=== PATIENT | male | born 1975 | race Two or more races ===

== ENCOUNTER 2024-05-19 07:56 | Outpatient (AMB) | payer MEDICAID, SELFPAY ==
--- NOTE | 2024-05-19 08:04 | A.OFFVIS_ITS ---
Intake Visit Reasons: Polyuria w/left vericocele/Hx stones Intake Note: New Patient presents for initial visit for poluria with left vericocele and history of kidney stones Urology Medications: none Blood Thinner: none Superintendent Renting Managing Required: Yes Superintendent Renting Managing Services: Superintendent Renting Managing Present Superintendent Renting Managing Name: MELISSA [id number] Accompanied by: Self / Same As Patient Allergies No Known Allergies Allergy (Verified 05/19/24 08:35) Medication List - Last Reconciled 05/19/24 by DAYAN Pena atorvastatin 20 mg PO BEDTIME fluticasone propionate 50 mcg/actuation 1 spray intranasal DAILY glimepiride 2 mg PO QAM loratadine 10 mg PO DAILY PRN HPI Comments Details: Juan is a 49-year-old Albanian speaking male patient of . He has a past medical history of allergies, hyperlipidemia, and diabetes. He presents to the office today as a new patient for ongoing lower urinary tract symptoms as well as nephrolithiasis. In discussion with the patient today he reports when living in [place] he had experienced an episode of nephrolithiasis approximately 5 years ago that required surgical intervention with what sounds like ESWL. He reports noting ongoing issues with urinary urgency and frequency. He otherwise denies incontinence, nocturia, hematuria, dysuria, foul smelling urine, changes to urinary stream, flank pain, fever, and or chills. In office urinalysis res ults reviewed with the patient today. We discussed obtaining retroperitoneal ultrasound for further assessment evaluation. We discussed bladder triggers/irritants. We discussed at length potential causes of nephrolithiasis as well as lower urinary tract symptoms patient is experiencing. We discussed possible near future in office cystoscopy and or urodynamics for further assessment evaluation. TIESHA offered however deferred. He otherwise offers no other issues or concerns at this time. [facility] Medical History Type 2 diabetes mellitus without complications Dysthymic disorder Review of Systems Const All systems reviewed & are unremarkable except as noted in HPI and below Physical Exam Const General: cooperative, healthy appearing, comfortable, no acute distress, well developed, alert and awake Orientation/consciousness: patient oriented x3 Limitations: no limitations HEENT Head: Yes normal to inspection, Yes normocephalic and Yes atraumatic Ears: hearing grossly normal bilaterally Eyes General: appearance normal, both eyes and all related structures Neck Neck: Yes normal visual inspection and Yes trachea midline Chest Chest palpation & inspection: normal inspection of the chest Resp Effort & Inspection: normal respiratory effort and able to speak in complete sentences Cardio Rate: regular rate GI Inspection: Yes normal to inspection General: Yes no CVA tenderness Back/Spine/Pelvis Back: no CVA tenderness Skin General skin exam: no rashes or lesions noted Neuro General: patient oriented x3 Extrem General: Yes normal to inspection Psych Appearance: grossly normal and well kempt Mental Status: mental status grossly normal Speech and movement: Normal speech and movement present and Clear speech present Affect: normal affect Attitude: cooperative Thought process: Normal thought process present Thought content: Normal thought content present Insight: Fair insight present (Psych) Judgement: Fair judgement present (Psych) Results AMB Urinalysis, Automated UA Leukoctes 0 Jordy/uL Last Edit by [employer] on 05/19/24 08:23 UA Nitrite Last Edit by [employer] on 05/19/24 08:23 UA Urobilinogen 0.2 mg/dL Last Edit by [employer] on 05/19/24 08:23 UA Protein 15 mg/dL Last Edit by [employer] on 05/19/24 08:23 UA pH 6.0 Last Edit by [employer] on 05/19/24 08:23 UA Blood 0 Kee/uL Last Edit by [employer] on 05/19/24 08:23 UA Specific [place] 1.020 Last Edit by [employer] on 05/19/24 08:23 UA Ketone Last Edit by [employer] on 05/19/24 08:23 UA Bilirubin 0 mg/dL Last Edit by [employer] on 05/19/24 08:23 UA Glucose 0 mg/dL Last Edit by [employer] on 05/19/24 08:23 Results Reviewed Results Reviewed: Laboratory Last Values Urine pH (Auto) 6.0 05/19/24 08:22 Specific [place] (Auto) 1.020 05/19/24 08:22 Urine Protein (Auto) 15 mg/dL 05/19/24 08:22 Glucose (UA)(Auto) 0 mg/dL 05/19/24 08:22 Urine Blood (Auto) 0 Kee/uL 05/19/24 08:22 Urine Bilirubin (Auto) 0 mg/dL 05/19/24 08:22 Urine Urobilinogen (Auto) 0.2 mg/dL 05/19/24 08:22 Leukocyte Esterase (Auto) 0 Jordy/uL 05/19/24 08:22 Assessment & Plan Assessment & Plan (1) Nephrolithiasis: Code(s): N20.0 - Calculus of kidney Category: Medical (2) Urinary urgency: Code(s): R39.15 - Urgency of urination Category: Medical (3) Urinary frequency: Code(s): R35.0 - Frequency of micturition Category: Medical Plan In office urinalysis results reviewed the patient today; as noted above. Discussed bladder triggers/irritants. Discussed potential causes of lower urinary tract symptoms as well as nephrolithiasis. Will obtain retroperitoneal ultrasound for further assessment evaluation. Will obtain PSA for further assessment evaluation. Discussed importance of limiting fluids 2-3 hours prior to bed to decrease episodes of nocturia. Start Flomax as discussed and prescribed. Follow-up in 1-3 months with imaging and labs to be completed prior; or sooner with any issues, concerns, and or questions. Orders: Orders AMB Urinalysis Automated Today Z13.9 - Encounter for screening, unspecified US retroperitoneal comp Today N20.0 - Calculus of kidney, R35.0 - Frequency of micturition, R39.15 - Urgency of urination Prostate Specific Antigen Today N40.0 - Benign prostatic hyperplasia without lower urinary tract symptoms Medications: New tamsulosin 0.4 mg PO BEDTIME 30 caps 3RF 30 days N40.1 - Benign prostatic hyperplasia with lower urinary tract symptoms, R35.1 - Nocturia Patient Instructions: The patient had an opportunity to ask questions regarding the treatment plan. All questions were answered. Physical exam, labs, and imaging were discussed and reviewed in detail. As well as risks, benefits, and discussion of treatment choices. No major barriers to understanding were identified. The patient expressed understanding and agreement with the above treatment plan. The patient was made aware they should contact our office by phone for worsening of their current condition, the appearance of new symptoms, or with any questions or concerns. Compliance is encouraged with any medications and follow up testing that is ordered. It is a privilege to be allowed the opportunity to participate in? your urological care.? Again, if you have any questions or concerns If you have any questions or concerns please do not hesitate to contact me. The office is [phone]. This note is constructed using voice recognition software. While every effort has been made to ensure accuracy job coaching errors may have been included. Yours sincerely, DAYAN Pena Coding Level of Care Code New Pt Level 4 (82889) Diagnoses Nephrolithiasis N20.0 Urinary urgency R39.15 Urinary frequency R35.0
== END 2024-05-19 08:37 | disposition home or self-care (01) ==
PROVIDERS: PCP Nurse Practitioner Family; Visit Provider Nurse Practitioner Family
DX: N20.0 Calculus of kidney (principal); R39.15 Urgency of urination; R35.0 Frequency of micturition; Z13.9 Encounter for screening, unspecified
CPT/HCPCS: 99204

== ENCOUNTER → 2024-05-19 07:56 | Outpatient (BNVA) | payer MEDICAID, SELFPAY | PROVIDERS: PCP Nurse Practitioner Family; Visit Provider Nurse Practitioner Family | DX: N40.1 Benign prostatic hyperplasia with lower urinary tract symptoms (principal); R39.15 Urgency of urination; R35.0 Frequency of micturition; N20.0 Calculus of kidney | CPT/HCPCS: 81003; 99212 ==

== ENCOUNTER 2024-08-11 10:43 | Outpatient (REF) | payer MEDICAID, SELFPAY ==
--- OUTSIDE RECORDS SUMMARY | 2024-08-11 11:35 | XMS_ITS | Encounter Summary ---
Author Organization [facility] Address [address] [place] [address] Care Team Providers Care Pricing Analyst Name Role Phone Billy Martini NP Primary Care Provider [phone] Reason for Visit * Reason Comments Diabetes Mellitus Encounter Details Date Type Department Care Team (Late st Contact Info) Description 07/15/2024 11:20 AM EST Office Visit [facility] [address] [place] [phone] Tl Braswell PharmD [address] [place] [address] Morteza Kamara [address] [place] [address] Type 2 diabetes mellitus with diabetic microalbuminuria, without long-term current use of insulin ([facility]) (Primary Dx); Hyperlipidemia LDL goal <70 Social History Tobacco Use Types Packs/Day Years Used Date Smoking Tobacco: Never Passive Smoke Exposure: Never Smokeless Tobacco: Never Tobacco Cessation:Counseling Given: Not Answered Alcohol Use Standard Drinks/Week Comments Never 0 (1 standard drink = 0.6 oz pur e alcohol) Social Connections Answer Date Recorded Connectedness 0 03/23/2024 Financial Resource Strain Answer Date R ecorded Financial Resource Strain 0 2023 Stress Answer Date Recorded Stress 0 12/13/2023 Physical Activity Answer Date Recorded Physical Activity 0 12/13/2023 Food Insecurity Answer Date Recorded Food 0 04/02/2024 Transportation Needs Answer Date Record ed Transportation 0 12/13/2023 Housing Stability Answer Date Recorded Housing 0 12/13/2023 Safety and Environment Answer Date Kong rded Safety 0 12/13/2023 Utilities Answer Date Recorded Utilities 0 12/13/2023 Employment Answer Date Recorded Stress 0 03/23/2024 Sex and Gender Information Value Date Recorded Sex Assigned at Male 01/01/2024 10:12 AM PDT Legal Sex Male 5:43 AM PDT Gender Identity Male 01/01/2024 10:12 AM PDT Sexual Orientation Straight 01/01/2024 10 :12 AM PDT COVID-19 Exposure Response Date Recorded In the last 10 days, have yo u been in contact with someone who was confirmed or suspected to have Coronavirus/COVID-19? No / Unsure 07/15/2024 9:56 AM EST documented as of this encounter Last Filed Vital Signs Vital Sign Reading Time Taken Comments Blood Pressure 112/70 07/15/2024 10:41 AM EST Pulse 79 07/15/2024 10:41 AM EST Temperature - - Respiratory Rate 16 07/15/2024 10:41 AM EST Oxygen Saturation 98% 07/15/2024 10:41 AM EST Inhaled Oxygen Concentration - - Weight 60.3 kg (133 lb) 07/15/2024 10:41 AM EST Height 152.4 cm (5') 07/15/2024 10:41 AM EST Body Mass Index 25.97 07/15/2024 10:41 AM EST documented in this encounter Progress Notes * Lizeth XieD - 07/15/2024 10:46 AM EST Juan Baker is a 49 year old, English-speaking male who presents today for a follow-up visit in [facility] with Tl Braswell PharmD. Referred by DONNA Ryan. Morteza Streeter (English) interpreted for today's visit. is present and assisting with interpretation during this in-person visit. Accompanied by: None Subjective: Patient reports: Continues to use Freestyle Lite, although did not bring in to today's visit due to forgetting at home. Reports the following BG values: see below. Endorses use of glimepiride 2 mg daily at 3 PM due to misunderstanding. Denies experiencing bilateral peripheral extremity numbness or tingling. Polydipsia/polyphagia/polyuria? no Changes in diet: Eats rice twice weekly Eats bread daily on the side with 3 meals Drinking 1 can of soda per week with zero sugar Reports drinking 2-3 bottles of water daily. Changes in physical activity: None, continues to walk New concerns: None Tobacco Use: Never Smoker Tobacco Intervention:provided tobacco cessation counseling Alcohol Use: No alcohol use Additional OTC medications or supplements: None Specialists managing DM/HTN: None Diabetes Current Diabetes RX: Glimepiride 2 mg daily with breakfast Objective: BGM Metrics: Not available, patient forgot glucometer/reader at home SMBG (BGM: Freestyle Lite) 07/15/24 FB mg/dL 110 mg/dL 117 mg/dL Lowest: 110 mg/dL Denies experiencing hypoglycemia readings (<70 mg/dL) or symptoms. Allergies reviewed: No Known Allergies BP 112/70 (Left Arm, Sitting, Regular Adult) Pulse 79 Resp 16 Ht 5' (1.524 m) Wt 133 lb (60.3 kg) SpO2 98% BMI 25.97 kg/m?? Smoking Status Never BSA 1.6 m?? Estimated Creatinine Clearance: 84.4 mL/min (by C-G formula based on SCr of 0.81 mg/dL). Last 3 BP Readings: Date: BP: 07/15/2024 112/70 06/15/2024 110/70 06/01/2024 110/83 Wt Readings from Last 3 Encounters: 07/15/24 133 lb (60.3 kg) 06/15/24 130 lb (59 kg) 05/07/24 130 lb (59 kg) Lab Results Component Value Date HGBA1C 6.9 (H) 06/15/2024 HGBA1C 6.3 (H) 01/01/2024 Lab Results Component Value Date GLUCOSE 122 (A) 07/15/2024 Lab Results Component Value Date URALBCREAT 257 (H) 06/15/2024 Lab Results Component Value Date VITB12 521 06/15/2024 FOLATE 17.6 06/15/2024 Lab Results Component Value Date NA 137 06/15/2024 K 4.9 06/15/2024 BUN 14 06/15/2024 BUNCREAT SEE NOTE: 06/15/2024 CREATININE 0.81 06/15/2024 EGFR 109 06/15/2024 Lab Results Component Value Date TSH 3.85 01/01/2024 Lab Results Component Value Date TRIGLYC 122 06/15/2024 CHOL 146 06/15/2024 HDL 39 (L) 06/15/2024 LDL 85 06/15/2024 CHOLHDL 3.7 06/15/2024 NONHDL 107 06/15/2024 The 10-year ASCVD risk score (Ángel COSBY, et al., 2019) is: 3.5% Assessment: Diabetes: Well-controlled A1c, Well-controlled SMBG HTN: well-controlled ASCVD: Age 40-75 yo, DM, no ASCVD = moderate intensity statin recommended in addition to lifestyle therapy Plan: E11.29,R80.9 Type 2 diabetes mellitus with diabetic microalbuminuria, without long-term current useof insulin ([facility]) (primary encounter diagnosis) Plan : EMPAGLIFLOZIN 10 MG TABLET - Take 1 Tablet by mouth every morning stop glimepiride 2 mg PHARMACOTHERAPY for diabetes Counseled patient on proper use of diabetes testing and testing once daily (alternate between FBG and 1-2 hours post biggest meal). Counseled patient on the following diet and lifestyle modifications (weight loss, low-sodium (SHEPPARD)diet, decrease carbohydrates such as rice, bread, pasta and corn meal, increase non-starchy vegetables, no potatoes or corn, increase protein, and increase physical activity with at least 150 minutesof moderate physical activity per week) New Jardiance 10 mg daily every morning (take with plenty of water during the day) - due to elevated microalbuminuria Stop glimepiride 2 mg daily PHARMACOTHERAPY for HTN Patient has elevated urine microalbumin/SCr ratio, will start on Jardiance. Will not E78.5 Hyperlipidemia LDL goal <70 ASCVD: Per 2023 ADA guidelines for lipid management, continue moderate-intensity statin: atorvastatin 20 mg daily at bedtime Referral: None, will contact SARAI Mcconnell to schedule foot care appt. Follow-Up: 09/17/24 @10:40 AM Patient agrees with plan of care and verbalizes understanding. Questions were answered. Education: Medication Regimen: (indication, dosage, administration, storage, ADR, missing dose) BG testing and target/Alternate Site Testing Focus on consuming carbohydrates from high-fiber sources like whole grains, legumes, and fruits in controlled portions to help manage blood sugar levels, and aim to fill half your plate with non-starchy vegetables like leafy greens, broccoli, or peppers for added nutrients and fiber. Avoid sugary beverages like soda and limit sweets to special occasions, choosing healthier alternatives such as water, unsweetened tea, or low-calorie drinks to minimize blood sugar spikes Incorporate at least 150 minutes of moderate physical activity per week, such as brisk walking or cycling, to improve insulin sensitivity, enhance glucose control, and support overall cardiovascular health. Sign / Symptoms of Hyperglycemia / Hypoglycemia Hypoglycemia Treatment (Rule 15) Penitentiary Complications Uncontrolled Diabetes Tl Braswell PharmD documented in this encounter Plan of Treatment Upcoming Encounters Date Type Department Care Team (Late st Contact Info) Description 09/17/2024 9:40 AM EDT Office Visit [facility] [address] [place] [phone] [address] [place] [address] 09/17/2024 10:40 AM EDT Office Visit [facility] [address] [place] [address] Tl Braswell PharmD [address] [place] [address] Morteza Kamara [address] [place] [address] documented as of this encounter Procedures Procedure Name Priority Date/Time Associated Diagnosis Comments GLUCOSE, BLOOD BY GLUCOSE MONITORING DEVICE (CLIA WAIVED)POCT Routine 07/15/2024 10:43 AM EST Type 2 diabetes mellitus with diabetic microalbuminuria, without long-term current use of insulin ([facility]) documented in this encounter Results * (ABNORMAL) GLUCOSE, BLOOD BY GLUCOSE MONITORING DEVICE (CLIA WAIVED)POCT (07/15/2024 10:43 AM EST) GLUCOSE 122(A) 70 - 100 mg/dL [facility] POCT Capillary Blood Blood / Unknown 5 10:43 AM EST us Tl Michaelle PharmD LAB - BLOOD DRAW Final Re sult [facility] POCT documented in this encounter Visit Diagnoses Diagnosis Type 2 diabetes mellitus with diabetic microalbuminuria, without long-term current use of insulin ([facility])- Primary Hyperlipidemia LDL goal <70 Other and unspecified hyperlipidemia documented in this encounter Additional Health Concerns Assessment Noted Time PHQ-9 Depression Total Score: 0 05/07/20 24 2:03 PM PDT documented as of this encounter Care Teams Pricing Analyst Relationship Specialty Start Date End Date Billy Martini NP [address] [place] [address] PCP - General Family Medicine, CHRISTIAN EDUCATION DIRECTOR 06/17/24 documented as of this encounter
--- OUTSIDE RECORDS SUMMARY | 2024-08-11 11:35 | XMS_ITS | Clinical Summary ---
Author Organization [facility] Address [address] [place] [address] Care Team Providers Care Ux Manager Name Role Phone Vini Billy RIVERS Primary Care Provider [phone] Source Comments PLEASE NOTE, if this patient is a minor, it may be UNLAWFUL to discuss sensitive information that is contained in these records (such as FAMILY PLANNING, MENTAL HEALTH or SUBSTANCE ABUSE) with the minor patient's parent or other person without the patient's specific authorization.[facility] Allergies No known active allergies Medications ibuprofen 600 mg tabletIndicatio ns:Intermittent headache Take 1 Tablet by mouth 4 (four) times daily as needed for pain, fever or headaches 120 Tablet 4 Active atorvastatin (LIPITOR) 20 mg tabletIndicatio ns:Hyperlipidem ia LDL goal <70 Take 1 Tablet by mouth nightly at bedtime For cholesterol 90 Tablet 1 4 Active loratadine (CLARITIN) 10 mg tabletIndicatio ns:Rash and nonspecific skin eruption,Post-n marilin drip Take 1 Tablet by mouth once daily as needed for allergies or other reason (itching) 90 Tablet 4 Active fluticasone (FLONASE) 50 mcg/actuation nasal sprayIndication s:Post-nasal drip Place 1 [place] in both nostrils once daily for 30 days 16 g 4 Active blood-glucose meter monitoring kitIndications: Type 2 diabetes mellitus with hyperglycemia, without long-term current use of insulin (HCC-CMS) Use to test blood glucose once daily. (Freestyle Lite). 1 Each 4 Active blood sugar diagnostic stripsIndicatio ns:Type 2 diabetes mellitus with hyperglycemia, without long-term current use of insulin (HCC-CMS) Use to test blood glucose once daily. (Freestyle Lite) 100 Each 3 4 Active lancets (FREESTYLE LANCETS) 28 gaugeIndication s:Type 2 diabetes mellitus with hyperglycemia, without long-term current use of insulin ([facility]) Use to test blood glucose once daily. (Freestyle Lancets) 100 Each 3 4 Active alcohol swabsIndication s:Type 2 diabetes mellitus with hyperglycemia, without long-term current use of insulin ([facility]) Use to test blood glucose once daily. 100 Each 3 4 Active tamsulosin (FLOMAX) 0.4 mg 24 hr capsule Take 0.4 mg by mouth nightly at bedtime 4 Active empagliflozin (JARDIANCE) 10 mg tabIndications: Type 2 diabetes mellitus with diabetic microalbuminuri a, without long-term current use of insulin ([facility]) Take 1 Tablet by mouth every morning stop glimepiride 2 mg 30 Tablet 5 5 Active glimepiride (AMARYL) 2 mg tabletIndicatio ns:Type 2 diabetes mellitus with hyperglycemia, without long-term current use of insulin ([facility]) Take 1 Tablet by mouth once daily with breakfast For diabetes 90 Tablet 4 025 Discontin ued(Excha nge, Therapeut ic) Active Problems Problem Noted Date Diagnosed Date Type 2 diabetes mellitus wit h diabetic microalbuminuria, without long-term current use of insulin ([facility]) 06/15/2024 Overview (06/16/2024): DM dx: ~ in [place] per patient reports Glucometer: Freestyle Lite Current Diabetes RX: Glimepiride 2 mg daily with breakfast STEPHANIE-I/ARB: BP is well-controlled, urine microalbumin/Scr ratio will completed today, eGFR >60 mL/min/1.73m2 as of 01/01/24. Per KDIGO guidelines, patient is low-risk for microalbuminuria, will hold off on STEPHANIE-I/ARB for now. Statin: Atorvastatin 20 mg daily at bedtime Pneumococcal vaccine: PCV20 (02/05/24) Diabetes foot exam: Referral pending as of 06/15/24 Diabetes retinal exam: 05/21/24 at [facility] No evidence of diabetic retinopathy or macular edema Epiretinal membrane OD - mild ERM - monitor Nuclear sclerosis OU - the patint is diagnosed [facility] cataract - monitor Presbyopia OU - mentions blurred vision at near - no prior use of glasses for near - recommend OTC +1.50 reading glasses - advised well. Nephrolithiasis 06/08/2024 Overview (06/08/2024): Saw [facility] urologist on 05/2024: placed on Tamsulosin. Hyperlipidemia LDL goal <70 01/09/2024 Immune to varicella 01/09/2024 Overview (01/09/2024): Per serology Pain, dental 01/01/2024 Personal history of kidney stones 01/01/2024 Polyuria 01/01/2024 Dysthymia 01/01/2024 Left varicocele 01/01/2024 Resolved Problems Problem Noted Date Diagnosed Date Resolved Date Diabetes mellitus type 2 01/01/202403/2024 Encounters Date Type Department Care Team Description 07/30/2024 11:00 AM EST Office Visit [address] [phone] David-Fisher, Chema, DDS Retained tooth root (Primary Dx) 07/15/2024 11:20 AM EST Office Visit [address] [phone] Tl Braswell, PharmD Morteza Kamara Type 2 diabetes mellitus with diabetic microalbuminuria, without long-term current use of insulin ([facility]) (Primary Dx); Hyperlipidemia LDL goal <70 07/15/2024 Travel 06/15/2024 10:20 AM EST Office Visit [address] [phone] Tl Braswell, PharmD Marium Krishnamurthy Type 2 diabetes mellitus with hyperglycemia, without long-term current use of insulin ([facility]) (Primary Dx); Hyperlipidemia LDL goal <70 06/15/2024 Travel 06/01/2024 9:00 AM EST Office Visit [address] [phone] Zachery Vyas, DDS Caries (Primary Dx) 06/01/2024 Travel 05/27/2024 9:00 AM EST Office Visit [facility] [address] [place] [phone] Chema Meneses, DDS Caries (Primary Dx) 05/27/2024 Travel from Last 3 Months Immunizations Name Administration Dates Next Due COVID-19,SARS-COV-2 VACCINE, UNSPECIFIED (US Adm in) 02/25/2021,02/02/2021 HEP B, PED/ADOL 07/14/2023 Hep B,adult,adjuvanted (HEPLISAV) 02/05/2024 Influenza (FLUBLOK),recombinant,injectable,preservative Free 05/07/2024 MMR (MMR II/Priorix) 07/14/2023,01/30/2023 PNEUMOCOCCAL CONJUGATE PCV 20 (Prevnar) 02/05/20 24 TDAP 02/05/2024,01/01/2024 Family History Medical History Relation Name Comments Other (See Comments) Father don ot know Heart Disease Mother Relation Name Status Comments Father Mother Social History Tobacco Use Types Packs/Day Years [...] No / Unsure 07/15/2024 9:56 AM EST Last Filed Vital Signs Vital Sign Reading Time Taken Comments Blood Pressure 112/70 07/15/2024 10:41 AM EST Pulse 79 07/15/2024 10:41 AM EST Temperature 36.7 ??C (98 ??F) 05/07/2024 2:00 PM EDT Respiratory Rate 16 07/15/2024 10:41 AM EST Oxygen Saturation 98% 07/15/2024 10:41 AM EST Inhaled Oxygen Concentration - - Weight 60.3 kg (133 lb) 07/15/2024 10:41 AM EST Height 152.4 cm (5') 07/15/2024 10:41 AM EST Body Mass Index 25.97 07/15/2024 10:41 AM EST Plan of Treatment Upcoming Encounters Date Type Department Care Team (Late st Contact Info) Description 09/17/2024 9:40 AM EDT Office Visit [address] [phone] Jessica Campo [address] [place] [address] 09/17/2024 10:40 AM EDT Office Visit [facility] [address] [place] [phone] Tl Braswell, LizethD [address] [place] [address] Morteza Kamara [address] [place] [address] Health Maintenance Due Date Last Done Comments Diabetes Foot Exam [address] CT Colonography 01/05/2021 Colonoscopy 01/05/2021 Colorectal Cancer Screening 01/05/2021 FIT/gFOBT 01/05/2021 Fecal DNA 01/05/2021 Flexible Sigmoidoscopy 01/05/2021 Imm-Hepatitis B (2 of 2 - Cp G 2-dose series) 03/04/2024 02/05/2024, 07/14/2023 Depression Monitoring 08/07/2024 05/07/2024 , 01/01/2024 Dental Prophy 09/23/2024 03/24/2024 [id number] ( season) 2024 02/25/2021, 02/02/2021 Postponed from 03/08/2024 (Patient postponement) Diabetes HbA1c 12/14/2024 06/15/2024, 01/01/2024 Dental BW 03/12/2025 03/10/2024 Dental Examination 03/12/2025 03/10/2024 Dental Perio Charting 03/26/2025 03/24/2024 Retinopathy Screening 05/21/2025 05/21/2024 Diabetes Microalbumin (w/Creatinine) 06/15/2025 06/15/2024, 06/15/2024 Lipid Screening 06/15/2025 06/15/2024, 01/01/2024 Serum Creatinine 06/15/2025 06/15/2024, 01/01/2024 Tobacco Screening 06/15/2025 06/15/2024 Hypertension Screening (#1) 07/15/2025 Dental FMX/Pano 05/29/2029 05/27/2024, 03/10/2024 Imm-DTaP/Tdap/Td (3 - Td or Tdap) 02/04/2034 02/05/2024, 01/01/2024 HIV Screening Completed 01/01/2024 Hepatitis C Screening Completed 01/01/2024 , 01/01/2024 Imm-Pneumococcal Completed 02/05/2024 Imm-Influenza Completed 05/07/2024 Alcohol and Drug Screen Completed 07/15/19, 01/01/2024 Procedures Procedure Name Priority Date/Time Associated Diagnosis Comments 12 EXTRACTION ERUPTED TOOTH OR EXPOSED ROOT Routine 07/30/2024 11:00 AM EST Retained tooth root 19 EXTRACTION ERUPTED TOOTH OR EXPOSED ROOT Routine 07/30/2024 11:00 AM EST Retained tooth root CASE PRESENTATION SUBS DTL & EXTENSIVE TX PLN Routine 07/30/2024 11:00 AM EST Retained tooth root GLUCOSE, BLOOD BY GLUCOSE MONITORING DEVICE (CLIA WAIVED)POCT Routine 07/15/2024 10:43 AM EST Type 2 diabetes mellitus with diabetic microalbuminuria, without long-term current use of insulin ([facility]) GLUCOSE, BLOOD BY GLUCOSE MONITORING DEVICE (CLIA WAIVED)POCT Routine 06/16/2024 10:43 AM EST Type 2 diabetes mellitus with hyperglycemia, without long-term current use of insulin ([facility]) MICROALBUMIN/CREATININ E RATIO, URINE, RANDOM Routine 06/15/2024 11:59 AM EST Diabetes mellitus type 2 HGBA1C W/MPG Routine 06/15/2024 11:59 AM EST Diabetes mellitus type 2 LIPIDS W RFLX TO DIRECT LDL Routine 06/15/2024 11:59 AM EST Routine general medical examination at a health care facility Hyperlipidemia LDL goal <70 COMPREHENSIVE METABOLIC PANEL Routine 06/15/2024 11:59 AM EST Routine general medical examination at a [facility] care facility Diabetes mellitus type 2 Hyperlipidemia LDL goal <70 VITAMIN B12 & FOLATE Routine 06/15/2024 11:57 AM EST Type 2 diabetes mellitus with hyperglycemia, without long-term current use of insulin ([facility]) 18 MO RESIN-BASED COMPOSITE - TWO SURFACES POSTERIOR Routine 06/01/2024 9:00 AM EST Caries CASE PRESENTATION SUBS DTL & EXTENSIVE TX PLN Routine 05/27/2024 9:00 AM EST Caries PANORAMIC RADIOGRAPHIC IMAGE Routine 05/27/2024 9:00 AM EST Caries 30 EXTRACTION ERU TOOTH RQR REMV BONE &/SECTN TOOTH Routine 05/27/2024 9:00 AM EST Caries REFERRAL TO OPHTHALMOLOGY Routine 05/21/2024 3:00 AM EST Screening for diabetic retinopathy REFERRAL TO UROLOGY Routine 05/19/2024 3 :00 AM EST Personal history of kidney stones Polyuria Left varicocele PROPHYLAXIS - ADULT Routine 03/24/2024 3 :00 PM EDT Dental calculus INTRAORAL - COMP SERIES OF RADIOGRAPHIC IMAGES Routine 03/10/2024 2:20 PM EDT Retained tooth root Caries Complete bony impaction of tooth COMP ORAL EVALUATION - NEW/ESTABLISHED PATIENT Routine 03/10/2024 2:20 PM EDT Complete bony impaction of tooth Caries Retained tooth root HIV 1/2 AG & AB W/RFLX (4TH GEN) Routine 01/01/2024 2:14 PM EDT Encounter for health examination of refugee HEPATITIS C AB W/RFLX HCV RNA, QT, RT PCR Routine 01/01/2024 2:14 PM EDT Encounter for health examination of refugee from Last 3 Months or Most Recently Relevant to Health Maintenance Results * (ABNORMAL) GLUCOSE, BLOOD BY GLUCOSE MONITORING DEVICE (CLIA WAIVED)POCT (07/15/2024 10:43 AM EST) Only the most recent of2 resultswithin the time period is included. GLUCOSE 122(A) 70 - 100 mg/dL [facility] PO[facility] Capillary Blood Blood / Unknown 10:43 AM EST Tl Braswell PharmD LAB - BLOOD DRAW Final Re sult [facility] POCT * (ABNORMAL) HGBA1C W/MPG (06/15/2024 11:59 AM EST) HEMOGLOBIN A1C 6.9(H) <5.7 % of total Hgb Science Comment: For someone without known diabetes, a hemoglobin A1c value of 6.5% or greater indicates that they may have diabetes and this should be confirmed with a follow-up test. For someone with known diabetes, a value <7% indicates that their diabetes is well controlled and a value greater than or equal to 7% indicates suboptimal control. A1c targets should be individualized based on duration of diabetes, age, comorbid conditions, and other considerations. Currently, no consensus exists regarding use of hemoglobin A1c for diagnosis of diabetes for children. ?? MEAN PLASMA GLUCOSE 168 mg/dL (calc) [employer] [facility] Blood Blood / Unknown 06/15/2024 1 1:59 AM EST 06/15/2024 12:00 PM EST Narrative State [facility] - 06/16/2024 6:00 PM EST FASTING:NO Raul Lal PAINTING CONTRACTOR LAB - BLOOD DRAW Edited Resu lt - Final [place] [facility] [address] [address], [place] [facility] [address] [place] [address] * (ABNORMAL) LIPIDS W RFLX TO DIRECT LDL (06/15/2024 11:59 AM EST) CHOLESTEROL, TOTAL 146 <200 mg/dL [place] [facility] HDL CHOLESTEROL 39(L) > OR = 40 mg/dL [place] [facility] TRIGLYCERIDES 122 <150 mg/dL [place] [facility] LDL-CHOLESTEROL 85 99 mg/dL (calc) [employer] [facility] Comment: Reference range: <100 Desirable range <100 mg/dL for primary prevention; ?? <70 mg/dL for patients with CHD or diabetic patients with > or = 2 CHD risk factors. LDL-C is now calculated using the Lucio-Muniz calculation, which is a validated novel method providing better accuracy than the Friedewald equation in the estimation of LDL-C. Lucio GREGORIO et al. REYES. 2013;310(19): 5187-8184 (http://education.LabourNet.MajorWeb, [employer]/faq/OYF796) CHOL/HDLC RATIO 3.7 <5.0 (calc) [employer] [facility] NON-HDL CHOLESTEROL 107 <130 mg/dL (calc) [employer] [facility] Comment: For patients with diabetes plus 1 major ASCVD risk factor, treating to a non-HDL-C goal of <100 mg/dL (LDL-C of <70 mg/dL) is considered a therapeutic option. Blood Blood / Unknown 06/15/2024 1 1:59 AM EST 06/15/2024 12:00 PM EST Narrative [place] [facility] - 06/16/2024 6:00 PM EST FASTING:NO [facility] Hali FNP LAB - BLOOD DRAW Final Resul t Performing Organization Address [facility] de Phone Number [place] [address] [address], [place] [address] [address] * (ABNORMAL) MICROALBUMIN/CREATININE RATIO, URINE, RANDOM (06/15/2024 11:59 AM EST) CREATININE, RANDOM URINE 178 20 - 320 mg/dL [employer] [facility] MICROALBUMIN 45.7 mg/dL Science Comment: Verified by repeat analysis. Reference Range Not established MICROALBUMIN/CREA TININE RATIO, RANDOM URINE 257(H) <30 mg/g creat [employer] [facility] Comment: The ADA defines abnormalities in albumin excretion as follows: Albuminuria Category ?Result (mg/g creatinine) Normal to Mildly increased ?? <30 Moderately increased ? 30-299 Severely increased ? > OR = 300 The ADA recommends that at least two of three specimens collected within a 3-6 month period be abnormal before considering a patient to be within a diagnostic category. Urine Urine specimen / Unknown 06/15/2024 11:59 AM EST 06/15/2024 12:00 PM EST Narrative State [facility] - 06/16/2024 6:00 PM EST FASTING:NO [facility] LAB - NO BLOOD DRAW Final Re sult Performing Organization Address [facility]/ZIP Co de Phone Number [place] [address] [address], [facility] [address] [address] * (ABNORMAL) COMPREHENSIVE METABOLIC PANEL (06/15/2024 11:59 AM EST) GLUCOSE 115 65 - 139 mg/dL [employer] [facility] Comment: ?Non-fasting reference interval UREA NITROGEN (BUN) 14 7 - 25 mg/dL [employer] [facility] CREATININE (blood) 0.81 0.60 - 1.29 mg/dL [employer] [facility] EGFR 109 > OR = 60 mL/min/1. 73m2 [employer] [facility] BUN/CREATININE RATIO SEE NOTE: [employer] [facility] Comment: ?? Not Reported: BUN and Creatinine are within ?? reference range. ? SODIUM 137 135 - 146 mmol/L [employer] [facility] POTASSIUM 4.9 3.5 - 5.3 mmol/L Science CHLORIDE 102 98 - 110 mmol/L [place] [facility] CARBON DIOXIDE 28 20 - 32 mmol/L [place] [facility] CALCIUM 9.9 8.6 - 10.3 mg/dL [facility] PROTEIN, TOTAL 8.0 6.1 - 8.1 g/dL [place] [facility] ALBUMIN 5.1 3.6 - 5.1 g/dL [place] [employer] GLOBULIN 2.9 1.9 - 3.7 g/dL (calc) [place] [facility] ALBUMIN/GLOBULI N RATIO 1.8 1.0 - 2.5 (calc) [place] [employer] BILIRUBIN, TOTAL 1.4(H) 0.2 - 1.2 mg/dL [place] [facility] ALKALINE PHOSPHATASE 70 36 - 130 U/L [employer] [facility] AST 22 10 - 40 U/L [place] [facility] ALT 27 9 - 46 U/L [place] [facility] Blood Blood / Unknown 06/15/2024 1 1:59 AM EST 06/15/2024 12:00 PM EST Narrative [facility] - 06/16/2024 6:00 PM EST FASTING:NO Raul Lal [facility] LAB - BLOOD DRAW Edited Resu lt - Final [place] [address] [address], [employer] [address] [address] * VITAMIN B12 & FOLATE (06/15/2024 11:57 AM EST) VITAMIN B12 521 200 - 1,100 pg/mL [place] [facility] FOLATE, SERUM 17.6 5.5 ng/mL [employer] [facility] Comment: ? Reference Range ? Low: ? <3.4 ? Borderline: ?3.4-5.4 ? Normal: ?>5.4 Blood Blood / Unknown 06/15/2024 1 1:57 AM EST 06/15/2024 11:58 AM EST Tl Braswell PharmD LAB - BLOOD DRAW Final Re sult [place] [address] [address], [place] [address] [address] * REFERRAL TO OPHTHALMOLOGY (05/21/2024 3:00 AM EST) 05/21/2024 3:00 AM EST Raul Lal [facility] REFERRAL Edited Resul t - Final * REFERRAL TO UROLOGY (05/19/2024 3:00 AM EST) 05/19/2024 3:00 AM EST Nolvia Maya [employer]INTING [employer] REFERRAL Final Result * HEPATITIS C AB W/RFLX HCV RNA, QT, RT PCR (01/01/2024 2:14 PM EDT) HEPATITIS C ANTIBODY NON-REACT SAGAR NON-REACT SAGAR [place] [facility] Comment: HCV antibody was non-reactive. There is no laboratory evidence of HCV infection. In most cases, no further action is required. However, if recent HCV exposure is suspected, a test for HCV RNA (test code 44065) is suggested. For additional information please refer to http://FlameStower.Bizware/faq/LPQ69v7 (This link is being provided for informational/ educational purposes only.) Blood Blood / Unknown 01/01/2024 2 :14 PM EDT 01/01/2024 2:15 PM EDT Narrative [facility] - 2024 8:37 PM EDT FASTING:NO COLLECTION KIT GIVEN TO PATIENT. PATIENT ADVISED TO RETURN. Nolvia tanya [facility] LAB - BLOOD DRAW Edited Result - Final [employer] [address] [place] [address], [place] [address] [address] * HIV 1/2 AG & AB W/RFLX (4TH GEN) (01/01/2024 2:14 PM EDT) [facility] HIV AG/AB, 4TH GEN NON-REAC TIVE NON-REAC TIVE [employer] [facility] Comment: HIV-1 antigen and HIV-1/HIV-2 antibodies were not detected. There is no laboratory evidence of HIV infection. PLEASE NOTE: This information has been disclosed to you from records whose confidentiality may be protected by state law. ??If your state requires such protection, then the state law prohibits you from making any further disclosure of the information without the specific written consent of the person to whom it pertains, or as otherwise permitted by law. A general authorization for the release of medical or other information is NOT sufficient for this purpose. ?? For additional information please refer to http://[email or web address] Information Technology.MajorWeb, LLC/faq/LFW919 (This link is being provided for informational/ educational purposes only.) The performance of this assay has not been clinically validated in patients less than 2 years old. Blood Blood / Unknown 01/01/2024 2 :14 PM EDT 01/01/2024 2:15 PM EDT [facility] - 2024 8:37 PM EDT FASTING:NO COLLECTION KIT GIVEN TO PATIENT. PATIENT ADVISED TO RETURN. Nolvia Maya PAINTING CONTRACTOR LAB - BLOOD DRAW Final Result [facility] [address] [address], [facility] [address] [place] [address] from Last 3 Months or Most Recently Relevant to Health Maintenance Insurance [place] [address] ACO Care Teams Ux Manager Relationship Specialty Start Date End Date Billy Martini NP [address] [place] [address] PCP - General Family Medicine, TRIAGE REGISTER NURSE 06/17/24
--- OUTSIDE RECORDS SUMMARY | 2024-08-11 11:35 | XMS_ITS | Clinical Summary ---
Author Organization [address] [place] [address] Address [address] [place] [address] Phone Care Team Providers Care Filter Machine Operator Name Role Phone Josh Gary Primary Care Provider [phone] Allergies No known active allergies Medications Medication Sig Dispensed Refills Start Date End Date Status glimepiride (AMARYL) 2 mg tablet Take 1 tablet (2 mg total) by mouth 1 (one) time each day before breakfast. Active ibuprofen (ADVIL,MOTRIN) 600 mg tablet Take by mouth. Active loratadine (CLARITIN) 10 mg tablet Take 1 tablet (10 mg total) by mouth 1 (one) time each day. Active atorvastatin (LIPITOR) 20 mg tablet Take 1 tablet (20 mg total) by mouth at bedtime. Active Encounters Date Type Department Care Team Description 05/12/2024 Telephone [facility] [place] [address] [address] Faizan Julian MD special procedure from Last 3 Months Social History Tobacco Use Types Packs/Day Years Used Date Smoking Tobacco: Never Assessed Sex and Gender Information Value Date Recorded Sex Assigned at Not on file Gender Identity Not on file Sexual Orientation Not on file Plan of Treatment Health Maintenance Due Date Last Done Comments DTaP,Tdap,and Td Vaccines (1 - Tdap) 01/05/1995 Hepatitis B Vaccines (1 of 3 - 19+ 3-dose series) 01/05/1995 COVID-19 Vaccine (2023-2 5 season) 2024 Influenza Vaccine (#1) 2024 Cholesterol Screening (Lipid Panel) 05/12/2024 Colorectal Cancer Screening: Colonoscopy 05/12/2024 Depression Screening 05/12/2024 HIV Screening 05/12/2024 Hepatitis C Screening 05/12/2024 Social Influencers of Health Screening 05/12/2024 HIB Vaccines Aged Out No longer eligi ble based on patient's age to complete this topic HPV Vaccines Aged Out No longer eligi ble based on patient's age to complete this topic Hepatitis A Vaccines Aged Out No long er eligible based on patient's age to complete this topic IPV Vaccines Aged Out No longer eligi ble based on patient's age to complete this topic MMR Vaccines Aged Out No longer eligi ble based on patient's age to complete this topic Meningococcal ACWY Vaccine Aged Out N o longer eligible based on patient's age to complete this topic Pneumococcal Vaccine: Pediat rics (0 to 5 Years) and At-Risk Patients (6 to 64 Years) Aged Out No longer eligible b ased on patient's age to complete this topic RSV Immunization Patients Un yulissa 20 months Aged Out No longer eligible b ased on patient's age to complete this topic Varicella Vaccines Aged Out No longer eligible based on patient's age to complete this topic Care Teams Filter Machine Operator Relationship Specialty Start Date End Date Josh Gary PA [address] [place] [phone] PCP - General Physician Mitten Stitcher 05/11/24
--- OUTSIDE RECORDS SUMMARY | 2024-08-11 11:35 | XMS_ITS | Encounter Summary ---
Author Organization [facility] Address [address] [place] [address] Care Team Providers Care Last Code Striper Name Role Phone Billy Martini NP Primary Care Provider [phone] Encounter Details Date Type Department Care Team (Latest Contact Info) Description 07/15/2024 Travel Social History Tobacco Use Types Packs/Day Years Used Date Smoking Tobacco: Never Passive Smoke Exposure: Never Smokeless Tobacco: Never Alcohol Use Standard Drinks/Week Comments Never 0 [...] AM EST documented as of this encounter Plan of Treatment Upcoming Encounters Date Type Department Care Team ( Contact Info) Description 09/17/2024 9:40 AM EDT Office Visit [address] [place] [address] Jessica Campo [address] [place] [address] 09/17/2024 10:40 AM EDT Office Visit [address] [address] Tl Braswell PharmD [address] [place] [phone] Morteza Kamara [address] [place] [phone] documented as of this encounter Visit Diagnoses Not on filedocumented in this encounter Additional Health Concerns Assessment Noted Time PHQ-9 Depression Total Score: 0 05/07/20 24 2:03 PM PDT documented as of this encounter Care Teams Last Code Striper Relationship Specialty Start Date End Date Billy Martini NP [address] [place] [address] PCP - General Family Medicine, NAIL WELTER 06/17/24 documented as of this encounter
--- OUTSIDE RECORDS SUMMARY | 2024-08-11 11:35 | XMS_ITS | Encounter Summary ---
Author Organization [facility] Address [address] [place] [address] Care Team Providers Care Hot Blaster Name Role Phone Billy Martini NP Primary Care Provider [phone] Encounter Details Date Type Department Care Team (Late st Contact Info) Description 07/30/2024 11:[address] EST [address] [facility] [address] [place] [phone] Chema Meneses DDS [address] [place] [address] Retained tooth root (Primary Dx) Social History Tobacco Use Types Packs/Day Years [...] AM EST documented as of this encounter Progress Notes * Chema Meneses DDS - 07/30/2024 11:31 AM EST Dental Extraction Subjective Juan Baker, 49 year old male, presents alone for extraction. Software Database Architect: Yes: Korean Objective RMHx: Yes Vitals: 129/87 Assessment Dx: K08.3 Retained tooth root (primary encounter diagnosis) Plan ext #12,19 Informed Consent/PARQ (Procedure, Alternatives, Risks, Questions): Patient confirms informed consent using PARQ, reviewed extraction consent and signed. Time-out completed: Yes Dental procedures in this visit D7140 - EXTRACTION ERUPTED TOOTH OR EXPOSED ROOT 19 (Completed) Service provider: Chema Meneses DDS Billing provider: Chema Meneses DDS D7140 - EXTRACTION ERUPTED TOOTH OR EXPOSED ROOT 12 (Completed) Service provider: Chema Meneses DDS Billing provider: Chema Meneses DDS D9450 - CASE PRESENTATION SUBS DTL & EXTENSIVE TX PLN (Completed) Service provider: Chema Meneses DDS Billing provider: Chema Meneses DDS Topical Anesthetic: 20% topical benzocaine Local Anesthetic: 3 carpule 4% articaine (Septocaine) with 1:100k epi Injection administered: MSA, IA, LB, Palatal Extraction(s) completed with periosteal, elevator, forceps, envelope flap, socket irrigated, socketcurretted, hemostasis obtained, gauze pressure, confirmed roots in tact and socket clear, no complications Post-Op Information Given: written & verbal Pain Management: OTC Acetaminophen 500mg q6h Referral:[facility] for evaluation and ext #1,16,17,32 Rx: No orders of the defined types were placed in this encounter. Behavior: Excellent DA: Aury NV: restorations documented in this encounter Plan of Treatment Upcoming Encounters Date Type Department Care Team (Late st Contact Info) Description 09/17/2024 9:40 AM EDT Office Visit [facility] [address] [place] [address] CampoJessica [address] [place] [address] 09/17/2024 10:40 AM EDT Office Visit [facility] [address] [place] [address] Tl Braswell PharmD [address] [place] [address] Morteza Kamara [address] [place] [address] documented as of this encounter Procedures Procedure Name Priority Date/Time Associated Diagnosis Comments CASE PRESENTATION SUBS DTL & EXTENSIVE TX PLN Routine 07/30/2024 11:00 AM EST Retained tooth root 12 EXTRACTION ERUPTED TOOTH OR EXPOSED ROOT Routine 07/30/2024 11:00 AM EST Retained tooth root 19 EXTRACTION ERUPTED TOOTH OR EXPOSED ROOT Routine 07/30/2024 11:00 AM EST Retained tooth root documented in this encounter Visit Diagnoses Diagnosis Retained tooth root- Primary Retained dental root documented in this encounter Additional Health Concerns Assessment Noted Time PHQ-9 Depression Total Score: 0 05/07/20 2:03 PM PDT documented as of this encounter Care Teams Hot Blaster Relationship Specialty Start Date End Date Billy Martini NP [address] [place] [address] PCP - General Family Medicine, ASSOCIATE PROGRAMMER 06/17/24 documented as of this encounter
== END 2024-08-11 10:44 | disposition home or self-care (01) ==
LOC: HO.US 10:43
PROVIDERS: PCP Nurse Practitioner Family; Visit Provider Nurse Practitioner Family
DX: N20.0 Calculus of kidney (principal); R39.15 Urgency of urination; R35.0 Frequency of micturition
CPT/HCPCS: 76770

== ENCOUNTER → 2024-08-11 10:47 | Outpatient (BNV) | payer MEDICAID, SELFPAY | PROVIDERS: PCP Nurse Practitioner Family; Visit Provider Specialist | DX: R35.0 Frequency of micturition (principal) | CPT/HCPCS: 76770 ==

== ENCOUNTER 2024-09-29 10:00 | Outpatient (AMB) | payer MEDICAID, SELFPAY ==
--- NOTE | 2024-09-29 10:51 | A.OFFVIS_ITS ---
Intake Visit Reasons: 1-3 follow up/ PSA/ US Intake Note: Patient presents for follow up on: poluria with left vericocele, history of kidney stones, and ultrasound results Imaging completed: 08/11/24 Urology Medications: none Blood Thinner: none PVR: 48ml's Quantitative Analyst Required: Yes Quantitative Analyst Services: Quantitative Analyst Present Quantitative Analyst Name: Selam [id number] Accompanied by: Self / Same As Patient Allergies No Known Allergies Allergy (Verified 09/29/24 11:16) Medication List - Last Reconciled 09/29/24 by DAYAN Pena atorvastatin 20 mg PO BEDTIME fluticasone propionate 50 mcg/actuation 1 spray intranasal DAILY glimepiride 2 mg PO QAM loratadine 10 mg PO DAILY PRN tamsulosin 0.4 mg PO BEDTIME 30 days HPI Comments Details: Juan is a 49-year-old Tamaz[place] speaking male patient of Dr. Maya. He has a past medical history of allergies, hyperlipidemia, and diabetes. He presents to the office today for follow-up. Of note, patient was seen approximately 4 months ago as a new patient for his ongoing lower urinary tract symptoms as well as nephrolithiasis at which time a retroperitoneal ultrasound was ordered for further assessment evaluation in the patient was started on Flomax. In discussion with the patient today he reports noting minimal improvement in urinary urgency and frequency as well as feeling of incomplete bladder emptying with 0.4 mg of Flomax daily. Recent renal imaging results reviewed with the patient today 09/01 bilateral kidneys are normal in size and echotexture. No hydronephrosis or renal calculi noted bilaterally. The urinary bladder is unremarkable. Pre void bladder volume is approximately 280 mL. Postvoid bladder volume is approximately 50 mL. PSA remains pending. He does have a previous history of surgical intervention regarding nephrolithiasis in [place]. We discussed at length potential causes for lower urinary tract symptoms patient was experiencing as well as further treatment options and risks and benefits of these treatment options. He otherwise denies incontinence, nocturia, hematuria, dysuria, foul smelling urine, flank pain, fever, and or chills. In office urinalysis results reviewed with the patient today. We discussed bladder triggers/irritants. We discussed possible near future in office cystoscopy and or urodynamics for further assessment evaluation. We discussed importance of management and diabetes for improvement in lower urinary tract symptoms as well as overall health and well-being. He otherwise offers no other issues or concerns at this time. [facility] Medical History Type 2 diabetes mellitus without complications Dysthymic disorder Review of Systems Const All systems reviewed & are unremarkable except as noted in HPI and below Physical Exam Const General: cooperative, healthy appearing, comfortable, no acute distress, well developed, alert and awake Orientation/consciousness: patient oriented x3 Limitations: no limitations HEENT Head: Yes normal to inspection, Yes normocephalic and Yes atraumatic Ears: hearing grossly normal bilaterally Eyes General: appearance normal, both eyes and all related structures Neck Neck: Yes normal visual inspection and Yes trachea midline Chest Chest palpation & inspection: normal inspection of the chest Resp Effort & Inspection: normal respiratory effort and able to speak in complete sentences Cardio Rate: regular rate GI Inspection: Yes normal to inspection General: Yes no CVA tenderness Back/Spine/Pelvis Back: no CVA tenderness Skin General skin exam: no rashes or lesions noted Neuro General: patient oriented x3 Extrem General: Yes normal to inspection Psych Appearance: grossly normal and well kempt Mental Status: mental status grossly normal Speech and movement: Normal speech and movement present and Clear speech present Affect: normal affect Attitude: cooperative Thought process: Normal thought process present Thought content: Normal thought content present Insight: Fair insight present (Psych) Judgement: Fair judgement present (Psych) Office Procedures Post Void Residual Post Residual Void Post Void Residual (PVR): 48 53021-Idic Void Residual by ultrasound Results AMB Urinalysis, Automated UA Leukoctes 0 Jordy/uL Last Edit by Steven Stiles on 09/29/24 11:15 UA Nitrite Last Edit by Steven Stiles on 09/29/24 11:15 UA Urobilinogen 0.2 mg/dL Last Edit by Steven Stiles on 09/29/24 11:15 UA Protein 15 mg/dL Last Edit by Renue Go on 09/29/24 11:15 UA pH 6.0 Last Edit by Steven Stiles on 09/29/24 11:15 UA Blood 0 Kee/uL Last Edit by Steven Stiles on 09/29/24 11:15 UA Specific [place] 1.020 Last Edit by Steven Stiles on 09/29/24 11:15 UA Ketone Last Edit by Steven Stiles on 09/29/24 11:15 UA Bilirubin 0 mg/dL Last Edit by Steven Stiles on 09/29/24 11:15 UA Glucose 0 mg/dL Last Edit by Steven Stiles on 09/29/24 11:15 Results Reviewed Results Reviewed: Laboratory Last Values Urine pH (Auto) 6.0 09/29/24 11:14 Specific [place] (Auto) 1.020 09/29/24 11:14 Urine Protein (Auto) 15 mg/dL 09/29/24 11:14 Glucose (UA)(Auto) 0 mg/dL 09/29/24 11:14 Urine Blood (Auto) 0 Kee/uL 09/29/24 11:14 Urine Bilirubin (Auto) 0 mg/dL 09/29/24 11:14 Urine Urobilinogen (Auto) 0.2 mg/dL 09/29/24 11:14 Leukocyte Esterase (Auto) 0 Jordy/uL 09/29/24 11:14 Date of Service: 08/11/24 Procedure(s): US retroperitoneal comp Findings: Right kidney normal size and echotexture, 11.3 cm length. Left kidney normal size and echotexture, 11.5 cm length. No hydronephrosis of either kidney. Normal color Doppler. Urinary bladder is unremarkable. Prevoid volume 276 mL. Postvoid volume 48 mL. Bilateral ureteral jets are visualized. IMPRESSION: 1. Normal kidneys. Assessment & Plan Assessment & Plan (1) Nephrolithiasis: Code(s): N20.0 - Calculus of kidney Category: Medical (2) Urinary urgency: Code(s): R39.15 - Urgency of urination Category: Medical (3) Urinary frequency: Code(s): R35.0 - Frequency of micturition Category: Medical Plan In office urinalysis results reviewed the patient today; as noted above. PVR 40 mL. Stop Flomax. Recent retroperitoneal ultrasound results reviewed with the patient today; as noted above. PSA remains pending. Start oxybutynin as discussed and prescribed. We discussed bladder triggers/irritants. We discussed importance of management and diabetes for improvement lower urinary tract symptoms as well as overall health and well-being. We discussed potential causes of lower urinary tract symptoms as well as nephrolithiasis; further treatment options and risks and benefits of these treatment options. We discussed potential near future in office cystoscopy and or urodynamics if symptoms persist and/or worsen. Follow-up in 1-3 months with PVR; or sooner with any issues, concerns, and or questions. Orders: Orders AMB Post Void Residual by ultrasound Today R39.15 - Urgency of urination AMB Urinalysis Automated Today Z13.9 - Encounter for screening, unspecified Medications: New oxybutynin chloride ER 10 mg PO DAILY 30 days 30 tabs 3RF N32.81 - Overactive bladder Discontinued tamsulosin Discontinued Reason: Doctor's Order 0.4 mg PO BEDTIME 30 days 30 caps 3RF N40.1 - Benign prostatic hyperplasia with lower urinary tract symptoms, R35.1 - Nocturia Patient Instructions: The patient had an opportunity to ask questions regarding the treatment plan. All questions were answered. Physical exam, labs, and imaging were discussed and reviewed in detail. As well as risks, benefits, and discussion of treatment choices. No major barriers to understanding were identified. The patient expressed understanding and agreement with the above treatment plan. The patient was made aware they should contact our office by phone for worsening of their current condition, the appearance of new symptoms, or with any questions or concerns. Compliance is encouraged with any medications and follow up testing that is ordered. It is a privilege to be allowed the opportunity to participate in? your urological care.? Again, if you have any questions or concerns If you have any questions or concerns please do not hesitate to contact me. The office is [phone]. This note is constructed using voice recognition software. While every effort has been made to ensure accuracy slinger sequins errors may have been included. Yours sincerely, DAYAN Pena Coding Level of Care Code Est Pt Level 4 (96881) Diagnoses Nephrolithiasis N20.0 Urinary urgency R39.15 Urinary frequency R35.0 CPT Codes Post Residual Void - PVR CPT Code: 78966-Thxk Void Residual by ultrasound ([id number])
--- OUTSIDE RECORDS SUMMARY | 2024-09-29 11:45 | XMS_ITS | Clinical Summary ---
Author Organization [address] [facility] Address [address] [place] [address] Phone Care Team Providers Care Appliance Service Supervisor Name Role Phone Josh Gary Primary Care Provider Allergies No known active allergies Medications glimepiride (AMARYL) 2 mg tablet Take 1 [...] mg total) by mouth at bedtime. Active Social History Tobacco Use Types Packs/Day Years Used Date Smoking Tobacco: Never Assessed Sex and Gender Information Value Date Recorded Sex Assigned at Not on file Legal Sex Male 2:36 PM EST Gender Identity Not on file Sexual Orientation Not on file Plan of Treatment Upcoming Encounters Date Type Department Care Team ([facility] Contact Info) Description 10/14/2024 10:00 AM EDT Appointment [facility] Endoscopy [address] [place] [phone] Faizan Julian MD [address] [facility] [address] [place] [address] Health Maintenance Due Date Last Done Comments [...] patient's age to complete this topic Meningococcal B Vacine Aged Out No lo nger eligible based on patient's age to complete [...] on patient's age to complete this topic Insurance MEDICAID - [place] Care Teams Appliance Service Supervisor Relationship Specialty Start Date End Date Josh Gary PA [address] [place] [address] PCP - General Physician Radiological Technician 05/11/24
== END 2024-09-29 11:33 | disposition home or self-care (01) ==
LOC: HO.HUSH 10:00
PROVIDERS: PCP Nurse Practitioner Family; Visit Provider Nurse Practitioner Family
DX: N20.0 Calculus of kidney (principal); R39.15 Urgency of urination; R35.0 Frequency of micturition; Z13.9 Encounter for screening, unspecified
CPT/HCPCS: 99214

== ENCOUNTER → 2024-09-29 10:00 | Outpatient (BNVA) | payer MEDICAID, SELFPAY | PROVIDERS: PCP Nurse Practitioner Family; Visit Provider Nurse Practitioner Family ==

== ENCOUNTER 2024-09-29 10:07 | Outpatient (REF) | payer MEDICAID, SELFPAY ==
[2024-09-29 14:10] LABS: Prostate Specific Antigen 0.56 ng/mL (<0.05-4.0)
== END 2024-09-29 10:08 | disposition home or self-care (01) ==
LOC: HO.10HDL 10:07
PROVIDERS: Visit Provider Nurse Practitioner Family
DX: N20.0 Calculus of kidney (principal); R39.15 Urgency of urination; R35.0 Frequency of micturition; N40.0 Benign prostatic hyperplasia without lower urinary tract symptoms; Z13.9 Encounter for screening, unspecified
CPT/HCPCS: 36415; 51798; 81003; 84153; 99212

== ENCOUNTER 2024-12-30 13:04 | Outpatient (AMB) | payer MEDICAID, SELFPAY ==
--- NOTE | 2024-12-30 13:46 | A.OFFVIS_ITS ---
Intake Visit Reasons: 3m/PVR Intake Note: Patient presents for follow up on: Urgency, Frequency, Nephrolithiasis Urology Medications: Oxybutynin Blood Thinner: none PVR: 0ml's Steam Trap Worker Required: Yes Steam Trap Worker Services: Steam Trap Worker Present Steam Trap Worker Name: [id number] Accompanied by: Self / Same As Patient Allergies No Known Allergies Allergy (Verified 12/30/24 14:07) Medication List - Last Reconciled 12/30/24 by DAYAN Pena atorvastatin 20 mg PO BEDTIME fluticasone propionate 50 mcg/actuation 1 spray intranasal DAILY glimepiride 2 mg PO QAM loratadine 10 mg PO DAILY PRN oxybutynin chloride ER 10 mg PO DAILY 30 days HPI Comments Details: Juan is a 49-year-old Mongolian speaking male patient of Dr. Maya. He has a past medical history of allergies, hyperlipidemia, and diabetes. He presents to the office today for follow-up of his lower urinary tract symptoms. In discussion with the patient today he reports he was unable to initiate oxybutynin as prescribed during last office visit as he has not obtain this from the pharmacy. He has continued the use of Flomax with no improvement in urinary urgency and frequency. He continues to experience episodes of urinary urgency and frequency however describes these episodes as variable data day. We did discussed correlation of diabetes with lower urinary tract symptoms. Previous workup has included retroperitoneal ultrasound 09/01 that noted bilateral kidneys are normal in size and echotexture. No hydronephrosis or renal calculi noted bilaterally. The urinary bladder is unremarkable. Pre void bladder volume is approximately 280 mL. Postvoid bladder volume is approximately 50 mL. PSA remains pending. He does have a previous history of surgical intervention re garding nephrolithiasis in [place]. We discussed at length potential causes for lower urinary tract symptoms patient was experiencing as well as further treatment options and risks and benefits of these treatment options. He otherwise denies incontinence, nocturia, hematuria, dysuria, foul smelling urine, flank pain, fever, and or chills. In office urinalysis results reviewed with the patient today. PH 5.5 3+ glucosuria we did discuss importance of adequate hydration relation to lower urinary tract symptoms. We discussed bladder triggers/irritants. We discussed possible near future in office cystoscopy and or urodynamics for further assessment evaluation. PSA 09/29 0.6. PVR 0 mL He otherwise offers no other issues or concerns at this time. [facility] Medical History Type 2 diabetes mellitus without complications Dysthymic disorder Review of Systems Const All systems reviewed & are unremarkable except as noted in HPI and below Physical Exam Const General: cooperative, healthy appearing, comfortable, no acute distress, well developed, alert and awake Orientation/consciousness: patient oriented x3 Limitations: language barrier HEENT Head: Yes normal to inspection, Yes normocephalic and Yes atraumatic Ears: hearing grossly normal bilaterally Eyes General: appearance normal, both eyes and all related structures Neck Neck: Yes normal visual inspection and Yes trachea midline Chest Chest palpation & inspection: normal inspection of the chest Resp Effort & Inspection: normal respiratory effort and able to speak in complete sentences Cardio Rate: regular rate GI Inspection: Yes normal to inspection General: Yes no CVA tenderness Back/Spine/Pelvis Back: no CVA tenderness Skin General skin exam: no rashes or lesions noted Neuro General: patient oriented x3 Extrem General: Yes normal to inspection Psych Appearance: grossly normal and well kempt Mental Status: mental status grossly normal Speech and movement: Normal speech and movement present and Clear speech present Affect: normal affect Attitude: cooperative Thought process: Normal thought process present Thought content: Normal thought content present Insight: Fair insight present (Psych) Judgement: Fair judgement present (Psych) Office Procedures Post Void Residual Post Residual Void Post Void Residual (PVR): 0 23933-Ftof Void Residual by ultrasound Results AMB Urinalysis, Automated UA Leukoctes 0 Jordy/uL Last Edit by KANNAN Reynolds on 12/30/24 14:11 UA Nitrite Last Edit by KANNAN Reynolds on 12/30/24 14:11 UA Urobilinogen 0.2 mg/dL Last Edit by KANNAN Reynolds on 12/30/24 14:1 1 UA Protein 15 mg/dL Last Edit by Renubarby Felicianophoebe [facility] on 12/30/24 14:11 UA pH 5.5 Last Edit by Steven Stiles [facility] on 12/30/24 14:11 UA Blood 0 Kee/uL Last Edit by Steven Stiles, [facility] on 12/30/24 14:11 UA Specific [place] 1.015 Last Edit by Steven Stiles [facility] on 12/30/24 14: 11 UA Ketone Last Edit by Steven Stiles, [facility] on 12/30/24 14:11 UA Bilirubin 0 mg/dL Last Edit by Steven Stiles, [facility] on 12/30/24 14:11 UA Glucose 1000 mg/dL Last Edit by Steven Stiles [facility] on 12/30/24 14:11 Results Reviewed Results Reviewed: Laboratory Last Values Urine pH (Auto) 5.5 12/30/24 14:07 Specific [place] (Auto) 1.015 12/30/24 14:07 Urine Protein (Auto) 15 mg/dL 12/30/24 14:07 Glucose (UA)(Auto) 1000 mg/dL 12/30/24 14:07 Urine Blood (Auto) 0 Kee/uL 12/30/24 14:07 Urine Bilirubin (Auto) 0 mg/dL 12/30/24 14:07 Urine Urobilinogen (Auto) 0.2 mg/dL 12/30/24 14:07 Leukocyte Esterase (Auto) 0 Jordy/uL 12/30/24 14:07 Assessment & Plan Assessment & Plan (1) Nephrolithiasis: Code(s): N20.0 - Calculus of kidney Category: Medical (2) Urinary urgency: Code(s): R39.15 - Urgency of urination Category: Medical (3) Urinary frequency: Code(s): R35.0 - Frequency of micturition Category: Medical Plan In office urinalysis results reviewed the patient today; as noted above. PVR 0 mL Recent PSA results reviewed with the patient today; as noted above. Start oxybutynin as discussed and prescribed. We discussed bladder triggers/irritants. We discussed importance of management and diabetes for improvement lower urinary tract symptoms as well as overall health and well-being. We discussed potential causes of lower urinary tract symptoms as well as nephrolithiasis; further treatment options and risks and benefits of these treatment options. We discussed potential near future in office cystoscopy and or urodynamics if symptoms persist and/or worsen. Follow-up in 1-3 months with PVR; or sooner with any issues, concerns, and or questions. Orders: Orders AMB Urinalysis Automated Today Z13.9 - Encounter for screening, unspecified AMB Post Void Residual by ultrasound Today R39.15 - Urgency of urination Patient Instructions: The patient had an opportunity to ask questions regarding the treatment plan. All questions were answered. Physical exam, labs, and imaging were discussed and reviewed in detail. As well as risks, benefits, and discussion of treatment choices. No major barriers to understanding were identified. The patient expressed understanding and agreement with the above treatment plan. The patient was made aware they should contact our office by phone for worsening of their current condition, the appearance of new symptoms, or with any questions or concerns. Compliance is encouraged with any medications and follow up testing that is ordered. It is a privilege to be allowed the opportunity to participate in? your urological care.? Again, if you have any questions or concerns If you have any questions or concerns please do not hesitate to contact me. The office is [phone]. This note is constructed using voice recognition software. While every effort has been made to ensure accuracy test engine mechanic errors may have been included. Yours sincerely, DAYAN Pena Coding Level of Care Code Est Pt Level 3 (05594) Complex EM visit Add On G2211 Diagnoses Nephrolithiasis N20.0 Urinary urgency R39.15 Urinary frequency R35.0 CPT Codes Post Residual Void - PVR CPT Code: 68407-Iesn Void Residual by ultrasound ([id number])
--- OUTSIDE RECORDS SUMMARY | 2024-12-30 15:17 | XMS_ITS | Clinical Summary ---
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 (Freestyle Lite). 1 Each 4 Active blood sugar diagnostic stripsIndicatio ns:Type 2 diabetes mellitus with hyperglycemia, without long-term current use of insulin ([facility]) Use to test blood glucose once daily. (Freestyle Lite) 100 Each 3 4 Active lancets (FREESTYLE LANCETS) 28 gaugeIndication s:Type 2 diabetes mellitus with hyperglycemia, without long-term current use of insulin ([facility]) Use to test blood glucose once daily. (Freestyle Lancets) 100 Each 3 4 Active alcohol swabsIndication s:Type 2 diabetes mellitus with hyperglycemia, without long-term current use of insulin ([facility]) Use to test blood glucose once daily. 100 Each 3 4 Active loratadine (CLARITIN) 10 mg tabletIndicatio ns:Rash and nonspecific skin eruption,Post-n marilin drip TAKE ONE TABLET BY MOUTH DAILY NEEDED FOR allergies OR other reason 90 Tablet 5 Active dapagliflozin propanediol 5 mg tabIndications: Type 2 diabetes mellitus with diabetic microalbuminuri a, without long-term current use of insulin ([facility]) Take 1 Tablet by mouth every morning For renal protection stop Jardiance 10 mg 30 Tablet 5 5 Active clotrimazole (LOTRIMIN) 1 % cream Apply topically 2 (two) times daily 15 g 5 Active oxyBUTYnin chloride (DITROPAN-XL) 10 mg 24 hr tablet Take 10 mg by mouth once daily. 5 Active atorvastatin (LIPITOR) 20 mg tabletIndicatio ns:Type 2 diabetes mellitus with diabetic microalbuminuri a, without long-term current use of insulin ([facility]),Hyper lipidemia LDL goal <70 Take 1 Tablet by mouth nightly at bedtime For cholesterol. 90 Tablet 1 5 Active atorvastatin (LIPITOR) 20 mg tabletIndicatio ns:Hyperlipidem ia LDL goal <70 Take 1 Tablet by mouth nightly at bedtime For cholesterol 90 Tablet 1 4 025 Discontin ued(Reord er (E-Cancel Not Sent)) tamsulosin (FLOMAX) 0.4 mg 24 hr capsule Take 0.4 mg by mouth nightly at bedtime 4 025 Discontin ued(Excha nge, Therapeut ic) LUIZ-G 236-22.74-6.74 -5.86 gram solution STARTING 6PM THE NIGHT BEFORE DRINK 8OZ GLASS AT YOUR OW PACEUNTIL YOU COMPLETE HALF.FINISH 2ND HALF 5 HOURS BEFORE PROCEDURE 025 Discontin ued(Thera py completed /Not needed) bisacodyL (DULCOLAX) 5 mg EC tablet TAKE 2 TABLETS BY MOUTH RIGHT BEFORE BEGINNING BOWEL PREP. 025 Discontin ued(Thera py completed /Not needed) Active Problems Problem Noted Date Diagnosed Date Type 2 diabetes mellitus wit h diabetic microalbuminuria, without long-term current use of insulin ([facility]) 06/15/2024 Overview (12/02/2024): DM dx: ~ in [place] per patient reports Glucometer: Freestyle Lite Current Diabetes RX: Dapagliflozin 5 mg daily every morning (take with plenty of water throughout the day) STEPHANIE-I/ARB: BP is well-controlled, urine microalbumin/Scr ratio is 257 mg/g (on dapagliflozin), eGFR >60 mL/min/1.73m2 as of 06/15/24. Per KDIGO guidelines, patient is low-risk for microalbuminuria, will hold off on STEPHANIE-I/ARB for now. Statin: Atorvastatin 20 mg daily at bedtime Pneumococcal vaccine: PCV20 (02/05/24) Diabetes foot exam: Foot care with SARAI Mcconnell on 10/08/24 Normal pedal pulses, no trophic changes or ulcerative lesions, normal sensory exam, normal monofilament exam, hygiene: good, and maceration or scaling in webspaces. Denies pain, numbness, tingling and burning in feet. Denies cramps in feet. No foot ulcers. No toe or foot deformities. Maceration between web spaces 3 & 4 both feet. He reports he has had this all his life and in the summer it is malodorous. Diabetes retinal exam: 05/21/24 at [facility] No evidence of diabetic retinopathy or macular edema Epiretinal membrane OD - mild ERM - monitor Nuclear sclerosis OU - the patint is diagnosed [facility] cataract - monitor Presbyopia OU - mentions blurred vision at near - no prior use of glasses for near - recommend OTC +1.50 reading glasses - advised well. Nephrolithiasis 06/08/2024 Overview (06/08/2024): Saw [facility] urologist on 05/2024: placed on Tamsulosin. Hyperlipidemia LDL goal <70 01/09/2024 Immune to varicella 01/09/2024 Overview (01/09/2024): Per serology Pain, dental 01/01/2024 Personal history of kidney stones 01/01/2024 Polyuria 01/01/2024 Dysthymia 01/01/2024 Left varicocele 01/01/2024 Resolved Problems Problem Noted Date Diagnosed Date Resolved Date Diabetes mellitus type 2 ([facility]) 01/01/2024 06/15/2024 Encounters Date Type Department Care Team Description 12/02/2024 3:20 PM EDT Office Visit [facility] [address] [place] [phone] Tl Braswell, Morteza Hart 10/12/2024 Interim Notes [address] [phone] Billy Martini NP 10/08/2024 2:20 PM EDT Office Visit [address] [phone] Enedina Sales RN Al Sammaraee, Hussein from Last 3 Months Immunizations Immunization Administration Dates Next Due COVID-19,SARS-COV-2 VACCINE, UNSPECIFIED [...] Orientation Straight 01/01/2024 10 :12 AM PDT Last Filed Vital Signs Vital Sign Reading Time Taken Comments Blood Pressure 123/73 12/02/2024 3:20 PM EDT Pulse 70 12/02/2024 3:20 PM EDT Temperature 36.7 C (98 F) 05/07/2024 2:00 PM EDT Respiratory Rate 16 12/02/2024 3:20 PM EDT Oxygen Saturation 98% 12/02/2024 3:20 PM EDT Inhaled Oxygen Concentration - - Weight 55.3 kg (122 lb) 12/02/2024 3:20 PM EDT Height 152.4 cm (5') 12/02/2024 3:20 PM EDT Body Mass Index 23.83 12/02/2024 3:20 PM EDT Plan of Treatment Upcoming Encounters Date Type Department Care Team (Late st Contact Info) Description 01/21/2025 3:40 PM EDT Office Visit [facility] [address] [place] [phone] Tl Braswell, Mg [address] [place] [address] Morteza Kamara [address] [place] [address] 02/11/2025 1:40 PM EDT Office Visit [facility] [address] [place] [address] Pilo Mariscal RDH [address] [place] [address] Health Maintenance Due Date Last Done Comments CT Colonography 01/05/2021 FIT/gFOBT 01/05/2021 Fecal DNA 01/05/2021 Flexible Sigmoidoscopy 01/05/2021 Imm-Hepatitis B (2 of 2 - Cp G 2-dose series) 03/04/2024 02/05/2024, 07/14/2023 Qon-MCLCY-18 (3 - season) 2024 021, 02/02/2021 Depression Monitoring 08/07/2024 05/07/2024, 024 Dental Prophy 09/23/2024 03/24/2024 Hemoglobin A1c 12/14/2024 06/15/2024, 01/01/2024 Dental BW 03/12/2025 03/10/2024 Dental Examination 03/12/2025 03/10/2024 Dental Perio Charting 03/26/2025 03/24/2024 Anxiety Screening 05/07/2025 05/07/2024 Retinopathy Screening 05/21/2025 05/21/2024 Lipid Screening 06/15/2025 06/15/2024, 01/01/2024 Serum Creatinine 06/15/2025 06/15/2024, 01/01/2024 Tobacco Screening 06/15/2025 06/15/2024 Urine Albumin Creatinine Ratio Screening 06/15/2025 06/15/2024, 06/15/2024 Diabetes Foot Exam 10/08/2025 10/08/2024 Hypertension Screening (#1) 12/02/2025 Dental FMX/Pano 05/29/2029 05/27/2024, 03/10/2024 Imm-DTaP/Tdap/Td (3 - Td or Tdap) 02/04/2034 024, 01/01/2024 Colonoscopy 10/14/2034 10/14/2024 Colorectal Cancer Screening 10/14/2034 HIV Screening Completed 01/01/2024 Hepatitis C Screening Completed 01/01/2024 Imm-Pneumococcal Completed 02/05/2024 Imm-Influenza Completed 05/07/2024 Alcohol and Drug Screen Completed 07/15/2024, 12/31 Procedures Procedure Name Priority Date/Time Associated Diagnosis Comments GLUCOSE, BLOOD BY GLUCOSE MONITORING DEVICE (CLIA WAIVED)POCT Routine 12/02/2024 3:22 PM EDT Type 2 diabetes mellitus with diabetic microalbuminuria, without long-term current use of insulin ([facility]) REFERRAL FOR COLONOSCOPY Routine 10/14/2024 3:00 AM EDT Screening for colorectal cancer REFERRAL SCANNED DOCUMENT 09/29/2024 3:00 AM EDT COMPREHENSIVE METABOLIC PANEL Routine 06/15/2024 11:59 AM EST Routine general medical examination at a health care facility Diabetes mellitus type 2 Hyperlipidemia LDL goal <70 LIPIDS W RFLX TO DIRECT LDL Routine 06/15/2024 11:59 AM EST Routine general medical examination at a health care facility Hyperlipidemia LDL goal <70 MICROALBUMIN/CREATININ E RATIO, URINE, RANDOM Routine 06/15/2024 11:59 AM EST Diabetes mellitus type 2 HGBA1C W/MPG Routine 06/15/2024 11:59 AM EST Diabetes mellitus type 2 PANORAMIC RADIOGRAPHIC IMAGE Routine 05/27/2024 9:00 AM EST Caries REFERRAL TO OPHTHALMOLOGY Routine 05/21/2024 3:00 AM EST Screening for diabetic retinopathy PROPHYLAXIS - ADULT Routine 03/24/2024 3:00 PM EDT Dental calculus INTRAORAL - COMP [...] BY GLUCOSE MONITORING DEVICE (CLIA WAIVED)POCT Routine (12/02/2024 3:22 PM EDT) GLUCOSE 113(A) 70 - 100 mg/dL [facility] PO[facility] Capillary Blood Blood / Unknown 3:22 PM EDT Tl Michaelle PharmD LAB - BLOOD DRAW Final Re sult [facility] OFFICE POCT * REFERRAL FOR COLONOSCOPY (10/14/2024 3:00 AM EDT) 10/14/2024 3:00 AM EDT Raul Hali HAND [employer] REFERRAL Final Result * REFERRAL SCANNED DOCUMENT (09/29/2024 3:00 AM EDT) 09/29/2024 3:00 AM EDT Nolvia Franciscoarianna [employer] [employer] SCAN REFERRAL Final Result * (ABNORMAL) HGBA1C W/MPG (06/15/2024 11:59 AM EST) HEMOGLOBIN A1C 6.9(H) <5.7 % of total Hgb [facility] Comment: For someone without known diabetes, a [...] A1c for diagnosis of diabetes for children. MEAN PLASMA GLUCOSE 168 mg/dL (calc) [facility] Blood Blood / Unknown 06/15/2024 1 1:59 AM EST 06/15/2024 12:00 PM EST Narrative [employer] - 06/16/2024 6:00 PM EST FASTING:NO [employer] [facility] LAB - BLOOD DRAW Edited Resu lt - Final Performing Organization Address City/[facility]/ZIP Co de Phone Number [facility] [address] [address], [facility] [address] [phone] * (ABNORMAL) LIPIDS W RFLX TO DIRECT LDL (06/15/2024 11:59 AM EST) CHOLESTEROL, TOTAL 146 <200 mg/dL [facility] HDL CHOLESTEROL 39(L) > OR = 40 mg/dL [facility] TRIGLYCERIDES 122 <150 mg/dL [facility] LDL-CHOLESTEROL 85 99 mg/dL (calc) [facility] Comment: Reference range: <100 Desirable range <100 mg/dL for primary prevention; <70 mg/dL for patients with CHD or diabetic patients with > or = 2 CHD risk factors. LDL-C is now calculated using the Lucio-Cristy calculation, which is a validated novel method providing better accuracy than the Friedewald equation in the estimation of LDL-C. Lucio SS et al. REYES. 2013;310(19): 5742-8842 (http://education.[employer]/faq/WPB664) CHOL/HDLC RATIO 3.7 <5.0 (calc) [facility] NON-HDL CHOLESTEROL 107 <130 mg/dL (calc) [employer] [facility] Comment: For patients with diabetes plus 1 major ASCVD risk factor, treating to a non-HDL-C goal of <100 mg/dL (LDL-C of <70 mg/dL) is considered a therapeutic option. Blood Blood / Unknown 06/15/2024 1 1:59 AM EST 06/15/2024 12:00 PM EST Narrative [employer] [facility] - 06/16/2024 6:00 PM EST FASTING:NO [employer] [facility] LAB - BLOOD DRAW Final Resul t Performing Organization Address City/[facility]/ZIP Co de Phone Number [facility] [address] [address], [facility] [address] [phone] * (ABNORMAL) MICROALBUMIN/CREATININE RATIO, URINE, RANDOM (06/15/2024 11:59 AM EST) CREATININE, RANDOM URINE 178 20 - 320 mg/dL [facility] MICROALBUMIN 45.7 mg/dL [facility] Comment: Verified by repeat analysis. Reference Range Not established MICROALBUMIN/CREA TININE RATIO, RANDOM URINE 257(H) <30 mg/g creat [facility] Comment: The ADA defines abnormalities in albumin excretion as follows: Albuminuria Category Result (mg/g creatinine) Normal to Mildly increased <30 Moderately increased 30-299 Severely increased > OR = 300 The ADA recommends that at least two of three specimens collected within a 3-6 month period be abnormal before considering a patient to be within a diagnostic category. Urine Urine specimen / Unknown 06/15/2024 11:59 AM EST 06/15/2024 12:00 PM EST Narrative [employer] [facility] - 06/16/2024 6:00 PM EST FASTING:NO Raul Hali [facility] LAB URINE AMBULATORY Final R esult [facility] [address] [address], [facility] [address] [address] * (ABNORMAL) COMPREHENSIVE METABOLIC PANEL (06/15/2024 11:59 AM EST) [facility] GLUCOSE 115 65 - 139 mg/dL [facility] Comment: Non-fasting reference interval UREA NITROGEN (BUN) 14 7 - 25 mg/dL [facility] CREATININE (blood) 0.81 0.60 - 1.29 mg/dL [facility] EGFR 109 > OR = 60 mL/min/1. 73m2 [facility] BUN/CREATININE RATIO SEE NOTE: [facility] Comment: Not Reported: BUN and Creatinine are within reference range. SODIUM 137 135 - 146 mmol/L [facility] POTASSIUM 4.9 3.5 - 5.3 mmol/L [facility] CHLORIDE 102 98 - 110 mmol/L [facility] CARBON DIOXIDE 28 20 - 32 mmol/L [facility] CALCIUM 9.9 8.6 - 10.3 mg/dL [facility] PROTEIN, TOTAL 8.0 6.1 - 8.1 g/dL [facility] ALBUMIN 5.1 3.6 - 5.1 g/dL [facility] [place] Marco Vasco GLOBULIN 2.9 1.9 - 3.7 g/dL (calc) [facility] ALBUMIN/GLOBULI N RATIO 1.8 1.0 - 2.5 (calc) [facility] BILIRUBIN, TOTAL 1.4(H) 0.2 - 1.2 mg/dL [facility] ALKALINE PHOSPHATASE 70 36 - 130 U/L [facility] AST 22 10 - 40 U/L [facility] ALT 27 9 - 46 U/L [facility] Blood Blood / Unknown 06/15/2024 1 1:59 AM EST 06/15/2024 12:00 PM EST Narrative [employer] [facility] - 06/16/2024 6:00 PM EST FASTING:NO [employer] [facility] LAB - BLOOD DRAW Edited Resu lt - Final [facility] [address] [address], [facility] [address] [address] * REFERRAL TO OPTHALMOLOGY (05/21/2024 3:00 AM EST) 05/21/2024 3:00 AM EST ITS [employer] REFERRAL Edited Resul t - Final * HEP C AB W/RLFX HCV RNA (for all adults >/= 18 yrs, all women, and all unaccompanied minors) (01/01/2024 2:14 PM EDT) HEPATITIS C ANTIBODY NON-REACT SAGAR NON-REACT SAGAR [facility] Comment: HCV antibody was non-reactive. There is no laboratory evidence of HCV infection. In most cases, no further action is required. However, if recent HCV exposure is suspected, a test for HCV RNA (test code 84604) is suggested. For additional information please refer to http://Bill.Forward.[employer]/faq/QGU86e2 (This link is being provided for informational/ educational purposes only.) Blood Blood / Unknown 01/01/2024 2 :14 PM EDT 01/01/2024 2:15 PM EDT Narrative [facility] - 2024 8:37 PM EDT FASTING:NO COLLECTION KIT GIVEN TO PATIENT. PATIENT ADVISED TO RETURN. Nolvia Maya [facility] - BLOOD DRAW Edited Result - Final [facility] [address] [place] [id number], [facility] [address] [place] [phone] * HIV 1/2 AG & AB W/RFLX (Required for 13 yrs to 64 yrs) (01/01/2024 2:14 PM EDT) HIV AG/AB, 4TH GEN NON-REAC TIVE NON-REAC TIVE [facility] Comment: HIV-1 antigen and HIV-1/HIV-2 antibodies were not detected. There is no laboratory evidence of HIV infection. PLEASE NOTE: This information has been disclosed to you from records whose confidentiality may be protected by state law. If your state requires such protection, then the state law prohibits you from making any further disclosure of the information without the specific written consent of the person to whom it pertains, or as otherwise permitted by law. A general authorization for the release of medical or other information is NOT sufficient for this purpose. For additional information please refer to http://Bill.Forward.[employer]/faq/KIO117 (This link is being provided for informational/ educational purposes only.) The performance of this assay has not been clinically validated in patients less than 2 years old. Blood Blood / Unknown 01/01/2024 2 :14 PM EDT 01/01/2024 2:15 PM EDT Narrative [facility] - 2024 8:37 PM EDT FASTING:NO COLLECTION KIT GIVEN TO PATIENT. PATIENT ADVISED TO RETURN. Nolvia Maya [facility] [facility] LAB - BLOOD DRAW Final Result [facility] [address] [address], [facility] [address] [place] [address] from Last 3 Months or Most Recently Relevant to Health Maintenance Insurance [place] [address] [employer]CO Care Teams Beef Breaker Relationship Specialty Start Date End Date Billy Martini NP [address] [place] [address] PCP - General Family Medicine, [employer]RO[employer]ER 06/17/24
== END 2024-12-30 14:44 | disposition home or self-care (01) ==
LOC: HO.HUSH 13:05
PROVIDERS: PCP Nurse Practitioner Family; Visit Provider Nurse Practitioner Family
DX: N20.0 Calculus of kidney (principal); R39.15 Urgency of urination; R35.0 Frequency of micturition; Z13.9 Encounter for screening, unspecified
CPT/HCPCS: 99213

== ENCOUNTER → 2024-12-30 13:04 | Outpatient (BNVA) | payer MEDICAID, SELFPAY | PROVIDERS: PCP Nurse Practitioner Family; Visit Provider Nurse Practitioner Family | DX: N20.0 Calculus of kidney (principal); R39.15 Urgency of urination; R35.0 Frequency of micturition | CPT/HCPCS: 51798; 81003; 99212 ==

== ENCOUNTER 2025-04-01 14:22 | Outpatient (AMB) | payer MEDICAID, SELFPAY ==
--- NOTE | 2025-04-01 14:23 | A.OFFVIS_ITS ---
Intake Visit Reasons: 3m/PVR Intake Note: Patient is present for 3M/PVR Urology Medication:OXYBUTYNIN Antibiotic Allergy:NONE Blood Thinner:NONE Last PVR:0ML'S Todays PVR:0ML'S Patient Portal Representative Required: No Patient Portal Representative Services: Patient Portal Representative Present Patient Portal Representative Name: [id number] Allergies No Known Allergies Allergy (Verified 04/02/25 17:30) Medication List - Last Reconciled 04/02/25 by DAYAN Pena atorvastatin 20 mg PO BEDTIME fluticasone propionate 50 mcg/actuation 1 spray intranasal DAILY glimepiride 2 mg PO QAM loratadine 10 mg PO DAILY PRN mirabegron ER (Myrbetriq) 25 mg PO DAILY 30 days HPI Comments Details: Juan is a 50-year-old Yi speaking male patient of Dr. Maya. He has a past medical history of allergies, hyperlipidemia, and diabetes. He presents to the office today for follow-up of his lower urinary tract symptoms. In discussion with the patient today he reports no improvement in lower urinary tract symptoms with initiation of oxybutynin during last office visit. He continues to experience urinary urgency and frequency. He also reports noting urinary dribbling. We did discuss in information was provided regarding pelvic floor exercises to assist with urinary dribbling. We did discussed potential causes of lower urinary tract symptoms patient is experiencing as well as further treatment options and risks and benefits of these treatment options. We did discussed correlation of diabetes with lower urinary tract symptoms. Previous workup has included retroperitoneal ultrasound 09/01 that noted bilateral kidneys are normal in size and echotexture. No hydronephrosis or renal calculi noted bilaterally. The urinary bladder is unremarkable. Pre void bladder volume is approximately 280 mL. Postvoid bladder volume is appr oximately 50 mL. PSA 09/29 0.6. He does have a previous history of surgical intervention regarding nephrolithiasis in [place]. He otherwise denies incontinence, nocturia, hematuria, dysuria, foul smelling urine, flank pain, fever, and or chills. In office urinalysis results reviewed with the patient today. PH 6.0 3+ glucosuria we did discuss importance of adequate hydration relation to lower urinary tract symptoms. We discussed bladder triggers/irritants. We discussed possible near future in office cystoscopy and or urodynamics for further assessment evaluation. PVR 0 mL He otherwise offers no other issues or concerns at this time. [facility] Medical History Type 2 diabetes mellitus without complications Dysthymic disorder Review of Systems Const All systems reviewed & are unremarkable except as noted in HPI and below Physical Exam Const General: cooperative, healthy appearing, comfortable, no acute distress, well developed, alert and awake Orientation/consciousness: patient oriented x3 Limitations: language barrier HEENT Head: Yes normal to inspection, Yes normocephalic and Yes atraumatic Ears: hearing grossly normal bilaterally Eyes General: appearance normal, both eyes and all related structures Neck Neck: Yes normal visual inspection and Yes trachea midline Chest Chest palpation & inspection: normal inspection of the chest Resp Effort & Inspection: normal respiratory effort and able to speak in complete s entences Cardio Rate: regular rate GI Inspection: Yes normal to inspection General: Yes no CVA tenderness Back/Spine/Pelvis Back: no CVA tenderness Skin General skin exam: no rashes or lesions noted Neuro General: patient oriented x3 Extrem General: Yes normal to inspection Psych Appearance: grossly normal and well kempt Mental Status: mental status grossly normal Speech and movement: Normal speech and movement present and Clear speech present Affect: normal affect Attitude: cooperative Thought process: Normal thought process present Thought content: Normal thought content present Insight: Fair insight present (Psych) Judgement: Fair judgement present (Psych) Office Procedures Post Void Residual Post Residual Void Post Void Residual (PVR): 0 [id number] Void Residual by ultrasound Results AMB Urinalysis, Automated UA Leukoctes 0 Jordy/uL Last Edit by KANNAN Nagy on 04/01/25 14:49 UA Nitrite Negative Last Edit by KANNAN Nagy on 04/01/25 14:49 UA Urobilinogen 0.2 mg/dL Last Edit by KANNAN Nagy on 04/01/25 14:4 9 UA Protein 15 mg/dL Last Edit by KANNAN Nagy on 04/01/25 14:49 UA pH 6.0 Last Edit by KANNAN Nagy on 04/01/25 14:49 UA Blood 10 Kee/uL Last Edit by KANNAN Nagy on 04/01/25 14:49 UA Specific [place] 1.015 Last Edit by KANNAN Nagy on 04/01/25 14: 49 UA Ketone Negative Last Edit by KANNAN Ngay on 04/01/25 14:49 UA Bilirubin 0 mg/dL Last Edit by KANNAN Nagy on 04/01/25 14:49 UA Glucose 1000 mg/dL Last Edit by KANNAN Nagy on 04/01/25 14:49 Results Reviewed Results Reviewed: Laboratory Last Values Urine pH (Auto) 6.0 04/01/25 14:30 Specific [place] (Auto) 1.015 04/01/25 14:30 Urine Protein (Auto) 15 mg/dL 04/01/25 14:30 Glucose (UA)(Auto) 1000 mg/dL 04/01/25 14:30 Urine Ketones (Auto) Negative 04/01/25 14:30 Urine Blood (Auto) 10 Kee/uL 04/01/25 14:30 Urine Nitrite (Auto) Negative 04/01/25 14:30 Urine Bilirubin (Auto) 0 mg/dL 04/01/25 14:30 Urine Urobilinogen (Auto) 0.2 mg/dL 04/01/25 14:30 Leukocyte Esterase (Auto) 0 Jordy/uL 04/01/25 14:30 Assessment & Plan Assessment & Plan (1) Nephrolithiasis: Code(s): N20.0 - Calculus of kidney Category: Medical (2) Urinary urgency: Code(s): R39.15 - Urgency of urination Category: Medical (3) Urinary frequency: Code(s): R35.0 - Frequency of micturition Category: Medical Plan In office urinalysis results reviewed the patient today; as noted above. PVR 0 mL We discussed bladder triggers/irritants. We discussed importance of management and diabetes for improvement lower urinary tract symptoms as well as overall health and well-being. Stop oxybutynin. Start Myrbetriq as discussed and prescribed. We discussed potential causes of lower urinary tract symptoms as well as nephrolithiasis; further treatment options and risks and benefits of these treatment options. We discussed potential near future in office cystoscopy and or urodynamics if symptoms persist and/or worsen. Follow-up in 1-3 months with PVR; or sooner with any issues, concerns, and or questions. Orders: Orders AMB Urinalysis Automated 04/01/25 Z13.9 - Encounter for screening, unspecified Urine Cytology 04/01/25 R31.29 - Other microscopic hematuria Medications: New mirabegron ER (Myrbetriq) 25 mg PO DAILY 30 tabs 3RF 30 days N30.10 - Interstitial cystitis (chronic) without hematuria, N32.81 - Overactive bladder, R35.1 - Nocturia, R39.15 - Urgency of urination Discontinued oxybutynin chloride ER Discontinued Reason: Doctor's Order 10 mg PO DAILY 30 tabs 3RF 30 days N32.81 - Overactive bladder Patient Instructions: The patient had an opportunity to ask questions regarding the treatment plan. All questions were answered. Physical exam, labs, and imaging were discussed and reviewed in detail. As well as risks, benefits, and discussion of treatment choices. No major barriers to understanding were identified. The patient expressed understanding and agreement with the above treatment plan. The patient was made aware they should contact our office by phone for worsening of their current condition, the appearance of new symptoms, or with any questions or concerns. Compliance is encouraged with any medications and follow up testing that is ordered. It is a privilege to be allowed the opportunity to participate in? your urological care.? Again, if you have any questions or concerns If you have any questions or concerns please do not hesitate to contact me. The office is [phone]. This note is constructed using voice recognition software. While every effort has been made to ensure accuracy motor operator errors may have been included. Yours sincerely, DAYAN Pena Coding Level of Care Code Est Pt Level 4 (18087) Diagnoses Nephrolithiasis N20.0 Urinary urgency R39.15 Urinary frequency R35.0 CPT Codes Post Residual Void - PVR CPT Code: 73627-[id number] Void Residual by ultrasound ([id number])
--- OUTSIDE RECORDS SUMMARY | 2025-04-01 18:46 | XMS_ITS | Clinical Summary ---
Author Organization [email or web address] [facility] Address [address] [place] [address] Care Team Providers Care Metal Fabricator Apprentice Name Role Phone Unavailable Primary Care Provider Unavailabl e Encounters Date Type Department Care Team Description 01/26/2025 Population Health Risk Score [facility] (C[facility]) Department [address] [place] [address] Provider, Population Health Generic from Last 3 Months Social History Tobacco Use Types Packs/Day Years Used Date Smoking Tobacco: Never Assessed Sex and Gender Information Value Date Recorded Sex Assigned at Not on file Legal Sex Male 9:33 PM EDT Gender Identity Not on file Sexual Orientation Not on file Plan of Treatment Health Maintenance Due Date Last Done Comments CT Colonography 1976 Colonoscopy 1976 Colorectal Cancer Screening 1976 Depression Screening 1976 FIT DNA/Cologuard 1976 FIT 1976 FOBT 1976 Lipid Panel 1976 SDOH Screening 1976 Sigmoidoscopy 1976 Disability Screening 1976 Alcohol/Substance Use Screening 1988 Tobacco Screening 1988 Family Planning (PISQ) 01/05/1991 Hepatitis C Screening 01/05/1994 Hepatitis B Vaccines (2 of 2 - CpG 2-dose series) 03/04/2024 02/05/2024, 07/14/2023 COVID-19 Vaccine (3 - 2024-2 6 season) 2025 02/25/2021, 02/02/2021 Influenza Vaccine (#1) 2025 05/07/2024 Zoster Vaccines (1 of 2) 01/05/2026 DTaP/Tdap/Td Vaccines (3 - T d or Tdap) 02/04/2034 02/05/2024, 01/01/2024 RSV Patients and Patients Aged 60 years or older (1 - 1-dose 75+ series) 01/05/2051 HIV Screening Completed 01/01/2024, 01/01/2024 Pneumococcal Vaccine: Pediatrics (0 to 5 Years) and At-Risk Patients (6 to 49) Years Aged Out 02/05/2024 No longer eligible b ased on patient's age to complete this topic HIB Vaccines Aged Out No longer eligi [...] age to complete this topic Meningococcal B Vaccine Aged Out No l onger eligible based on patient's age to complete this topic Meningococcal Vaccine Aged Out No tung marlene eligible based on patient's age to complete this topic RSV under 20 months Aged Out No longe r eligible based on patient's age to complete this topic Rotavirus Vaccines Aged Out No longer eligible based on patient's age to complete this topic
--- OUTSIDE RECORDS SUMMARY | 2025-04-01 18:46 | XMS_ITS | Clinical Summary ---
Author Organization [facility] Address [address] [place] [address] Care Team Providers Care Gauge And Instrument Inspector Name Role Phone Stevielam Nickcandice SILVESTRE Primary Care Provider Source Comments PLEASE NOTE, if this patient [...] for pain, fever or headaches 120 Tablet 02/05/20 24 Active blood-glucose meter monitoring kitIndications: Type 2 diabetes mellitus with hyperglycemia, without long-term current use of insulin ([facility]) Use to test blood glucose once daily. (Freestyle Lite). 1 Each 06/15/20 24 Active blood sugar diagnostic stripsIndicatio ns:Type 2 diabetes mellitus with hyperglycemia, without long-term current use of insulin ([facility]) Use to test blood glucose once daily. (Freestyle Lite) 100 Each 3 06/15/20 24 Active lancets (FREESTYLE LANCETS) 28 gaugeIndication s:Type 2 diabetes mellitus with hyperglycemia, without long-term current use of insulin ([facility]) Use to test blood glucose once daily. (Freestyle Lancets) 100 Each 3 06/15/20 24 Active alcohol swabsIndication s:Type 2 diabetes mellitus with hyperglycemia, without long-term current use of insulin ([facility]) Use to test blood glucose once daily. 100 Each 3 06/15/20 24 Active loratadine (CLARITIN) 10 mg tabletIndicatio ns:Rash and nonspecific skin eruption,Post-n marilin drip TAKE ONE TABLET BY MOUTH DAILY NEEDED FOR allergies OR other reason 90 Tablet 09/17/19 25 Active oxyBUTYnin chloride (DITROPAN-XL) 10 mg 24 hr tablet Take 10 mg by mouth once daily. 11/25/19 25 Active atorvastatin (LIPITOR) 20 mg tabletIndicatio ns:Type 2 diabetes mellitus with diabetic microalbuminuri a, without long-term current use of insulin ([facility]),Hyperl ipidemia LDL goal <70 Take 1 Tablet by mouth nightly at bedtime For cholesterol. 90 Tablet 1 12/03/19 25 Active clotrimazole (LOTRIMIN) 1 % cream Apply topically 2 (two) times daily. 15 g 01/29/20 25 Active dapagliflozin propanediol (FARXIGA) 5 mg tabIndications: Type 2 diabetes mellitus with diabetic microalbuminuri a, without long-term current use of insulin ([facility]) Take 1 Tablet by mouth every morning (Take with plenty of water throughout the day). 30 Tablet 5 03/26/20 25 Active dapagliflozin propanediol 5 mg tabIndications: Type 2 diabetes mellitus with diabetic microalbuminuri a, without long-term current use of insulin ([facility]) Take 1 Tablet by mouth every morning For renal protection. 30 Tablet 5 01/22/20 25 025 Discontinued Active Problems Problem Noted Date Diagnosed Date Type 2 diabetes mellitus wit h diabetic microalbuminuria, without long-term current use of insulin ([facility]) 06/15/2024 Overview (01/26/2025): DM dx: ~ in [place] per patient reports Glucometer: Freestyle Lite Current Diabetes RX: Dapagliflozin 5 mg daily every morning (take with plenty of water throughout the day) STEPHANIE-I/ARB: BP is well-controlled, urine microalbumin/Scr ratio is 51 mg/g as of 01/07/25 (on dapagliflozin), eGFR >60 mL/min/1.73m2 as of 06/15/24. Per KDIGO guidelines, patient is low-risk for microalbuminuria, will hold off on STEPHANIE-I/ARB for now. Urine microalbumin/Scr ratio: 51 mg/g (01/07/25) - on dapagliflozin 5 mg Statin: Atorvastatin 20 mg daily at bedtime Pneumococcal vaccine: PCV20 (02/05/24) Diabetes foot exam: 10/08/24 - foot care with SARAI Mcconnell Normal pedal pulses, no trophic changes or [...] is malodorous. Diabetes retinal exam: 05/21/24 at [facility] No evidence of diabetic retinopathy or macular edema Epiretinal membrane OD - mild ERM - monitor Nuclear sclerosis OU - the patint is diagnosed [facility] cataract - monitor Presbyopia OU - mentions blurred vision at near - no prior use of glasses for near - recommend OTC +1.50 reading glasses - advised well. Nephrolithiasis 06/08/2024 Overview (06/08/2024): Saw [facility] urologist on 05/2024: placed on Tamsulosin. Hyperlipidemia LDL goal <70 01/09/2024 Immune to varicella 01/09/2024 Overview (01/09/2024): Per serology Pain, dental 01/01/2024 Personal history of kidney stones 01/01/2024 Polyuria 01/01/2024 Dysthymia 01/01/2024 Left varicocele 01/01/2024 Resolved Problems Problem Noted Date Diagnosed Date Resolved Date Diabetes mellitus type 2 ([facility]) 01/01/2024 06/15/2024 Encounters Date Type Department Care Team Description 01/21/2025 3:40 PM EDT Office Visit [address] [phone] Tl Braswell, LizethD Morteza Kamara 01/08/2025 Results Follow-Up [address] [phone] Tl Braswell, PharmD from Last 3 Months Immunizations Immunization Administration Dates Next Due COVID-19,SARS-COV-2 VACCINE, UNSPECIFIED (US Adm in) 02/25/2021,02/02/2021 HEP B, PED/ADOL (AYLFKTY-H-ITYL/RECOMBIVAX-PEDS) 07/14/2023 Hep B,adult,adjuvanted (HEPLISAV) 02/05/2024 Influenza (FLUBLOK),recombinant,injectable,preservative Free 05/07/2024 MMR (MMR II/Priorix) 07/14/2023,01/30/2023 PNEUMOCOCCAL CONJUGATE PCV 20 (Prevnar 20) 02/04 TDAP 02/05/2024,01/01/2024 Family History Medical History Relation [...] Sign Reading Time Taken Comments Blood Pressure 100/60 01/21/2025 3:47 PM EDT Pulse 72 01/21/2025 3:47 PM EDT Temperature 36.7 C (98 F) 05/07/2024 2:00 PM EDT Respiratory Rate 18 01/21/2025 3:47 PM EDT Oxygen Saturation 99% 01/21/2025 3:47 PM EDT Inhaled Oxygen Concentration - - Weight 54.4 kg (119 lb 14.4 oz) 01/21/2025 3:47 PM EDT Height 152.4 cm (5') 12/02/2024 3:20 PM EDT Body Mass Index 23.42 12/02/2024 3:20 PM EDT Plan of Treatment Health Maintenance Due Date Last Done Comments CT Colonography 01/05/2021 FIT/gFOBT 01/05/2021 Fecal DNA 01/05/2021 Flexible Sigmoidoscopy 01/05/2021 Imm-Hepatitis B (2 of 2 - Cp G 2-dose series) 03/04/2024 02/05/2024, 07/14/2023 Depression Monitoring 08/07/2024 05/07/2024, 024 Dental Prophy 09/23/2024 03/24/2024 Nef-WCBEO-22 ( season) 2025 021, 02/02/2021 Imm-Influenza (#1) 2025 05/07/2024 Dental BW 03/12/2025 03/10/2024 Dental Examination 03/12/2025 03/10/2024 Dental Perio Charting 03/26/2025 03/24/2024 Anxiety Screening 05/07/2025 05/07/2024 Retinopathy Screening 05/21/2025 05/21/2024 Lipid Screening 06/15/2025 06/15/2024, 01/01/2024 Serum Creatinine 06/15/2025 06/15/2024, 01/01/2024 Tobacco Screening 06/15/2025 06/15/2024 Hemoglobin A1c 07/10/2025 01/07/2025, 03/2024, 01/01/2024 Diabetes Foot Exam 10/08/2025 10/08/2024 Urine Albumin Creatinine Rat io Screening 01/07/2026 01/07/2025, 06/15/2024, 06/15/2024 Hypertension Screening (#1) 01/21/2026 Dental FMX/Pano 05/29/2029 05/27/2024, 03/10/2024 Imm-DTaP/Tdap/Td (3 - Td or Tdap) 02/04/2034 024, 01/01/2024 Colonoscopy 10/14/2034 10/14/2024 Colorectal Cancer Screening 10/14/2034 HIV Screening Completed 01/01/2024 Hepatitis C Screening Completed 01/01/2024 Imm-Pneumococcal Completed 02/05/2024 Alcohol and Drug Screen Completed 07/15/2024, 12/31 Procedures Procedure Name Priority Date/Time Associated Diagnosis Comments GLUCOSE, BLOOD BY GLUCOSE MONITORING DEVICE (CLIA WAIVED)POCT Routine 01/21/2025 3:54 PM EDT Type 2 diabetes mellitus with diabetic microalbuminuria, without long-term current use of insulin ([facility]) HEMOGLOBIN GLYCOSYLATED A1C Routine 01/07/2025 3:07 PM EDT Type 2 diabetes mellitus with diabetic microalbuminuria, without long-term current use of insulin ([facility]) MICROALBUMIN/CREATININ E RATIO, URINE, RANDOM Routine 01/07/2025 3:07 PM EDT Type 2 diabetes mellitus with diabetic microalbuminuria, without long-term current use of insulin ([facility]) REFERRAL SCANNED DOCUMENT 12/30/2024 3:00 AM EDT REFERRAL FOR COLONOSCOPY Routine 10/14/2024 3:00 AM EDT Screening for colorectal cancer COMPREHENSIVE METABOLIC PANEL Routine 06/15/2024 11:59 AM EST Routine general medical examination at a health care facility Diabetes mellitus type 2 Hyperlipidemia LDL goal <70 LIPIDS W RFLX TO DIRECT LDL Routine 06/15/2024 11:59 AM EST Routine general medical examination at a health care facility Hyperlipidemia LDL goal <70 PANORAMIC RADIOGRAPHIC IMAGE Routine 05/27/2024 9:00 AM EST Caries REFERRAL TO OPHTHALMOLOGY Routine 05/21/2024 3:00 AM EST Screening for diabetic retinopathy PROPHYLAXIS - ADULT Routine 03/24/2024 3 :00 [...] BY GLUCOSE MONITORING DEVICE (CLIA WAIVED)POCT Routine (01/21/2025 3:54 PM EDT) GLUCOSE 188(A) 70 - 100 mg/dL [facility] POCT Capillary Blood Blood / Unknown 3:54 PM EDT us Tl Braswell PharmD LAB - BLOOD DRAW Final Re sult [facility] POCT * (ABNORMAL) MICROALBUMIN/CREATININE RATIO, URINE, RANDOM Urine Routine (01/07/2025 3:07 PM EDT) CREATININE, RANDOM URINE 57 20 - 320 mg/dL [facility] MICROALBUMIN 2.9 mg/dL [employer] [facility] Comment: Reference Range Not established MICROALBUMIN/CREA TININE RATIO, RANDOM URINE 51(H) <30 mg/g creat [facility] Comment: The ADA defines abnormalities in albumin excretion as follows: Albuminuria Category Result (mg/g creatinine) Normal to Mildly increased <30 Moderately increased 30-299 Severely increased > OR = 300 The ADA recommends that at least two of three specimens collected within a 3-6 month period be abnormal before considering a patient to be within a diagnostic category. Urine Urine specimen / Unknown 01/07/2025 3:07 PM EDT 01/07/2025 3:08 PM EDT Narrative [facility] - 01/08/2025 3:31 PM EDT FASTING:NO Tl Braswell [employer] LAB URINE AMBULATORY Macarena l Result Performing Organization Address [facility] de Phone Number [employer] [facility] [employer] [address] [address], [employer] [address] [phone] * (ABNORMAL) HEMOGLOBIN GLYCOSYLATED A1C Routine (01/07/2025 3:07 PM EDT) HEMOGLOBIN A1C 6.6(H) <5.7 % [facility] Comment: For someone without known diabetes, a [...] A1c for diagnosis of diabetes for children. Blood Blood / Unknown 01/07/2025 3 :07 PM EDT 01/07/2025 3:08 PM EDT Narrative [facility] - 01/08/2025 3:31 PM EDT FASTING:NO Tl Braswell PharmD LAB - BLOOD DRAW Edited R esult - Final Performing Organization Address [facility] de Phone Number [email or web address] [address] [place] [id number], [employer] [address] [phone] * REFERRAL SCANNED DOCUMENT (12/30/2024 3:00 AM EDT) 12/30/2024 3:00 AM EDT Nolvia Maya VALVING MACHINE OPERATOR SCAN REFERRAL Final Result * REFERRAL FOR COLONOSCOPY (10/14/2024 3:00 AM EDT) 10/14/2024 3:00 AM EDT [employer] [facility] REFERRAL Final Result * (ABNORMAL) LIPIDS W RFLX TO DIRECT LDL (06/15/2024 11:59 AM EST) CHOLESTEROL, TOTAL 146 <200 mg/dL [facility] HDL CHOLESTEROL 39(L) > OR = 40 mg/dL [employer] [facility] TRIGLYCERIDES 122 <150 mg/dL [facility] LDL-CHOLESTEROL 85 99 mg/dL (calc) [facility] Comment: Reference range: <100 Desirable range <100 mg/dL for primary prevention; <70 mg/dL for patients with CHD or diabetic patients with > or = 2 CHD risk factors. LDL-C is now calculated using the Mary Grace calculation, which is a validated novel method providing better accuracy than the Friedewald equation in the estimation of LDL-C. Lucio SS et al. REYES. 2013;310(19): 0391-7749 (http://education.[employer]/faq/PDG816) CHOL/HDLC RATIO 3.7 <5.0 (calc) [facility] NON-HDL CHOLESTEROL 107 <130 mg/dL (calc) [facility] Comment: For patients with diabetes plus 1 major ASCVD risk factor, treating to a non-HDL-C goal of <100 mg/dL (LDL-C of <70 mg/dL) is considered a therapeutic option. Blood Blood / Unknown 06/15/2024 1 1:59 AM EST 06/15/2024 12:00 PM EST Narrative [facility] - 06/16/2024 6:00 PM EST FASTING:NO [facility] Hali FNP LAB - BLOOD DRAW Final Resul t [email or web address] [address] [place] [phone], [facility] [address] [phone] * (ABNORMAL) COMPREHENSIVE METABOLIC PANEL (06/15/2024 11:59 AM EST) GLUCOSE 115 65 - 139 mg/dL [facility] Comment: Non-fasting reference interval UREA NITROGEN (BUN) 14 7 - 25 mg/dL [facility] CREATININE (blood) 0.81 0.60 - 1.29 mg/dL [facility] EGFR 109 > OR = 60 mL/min/1. 73m2 [facility] BUN/CREATININE RATIO SEE NOTE: 6 - [facility] Comment: Not Reported: BUN and Creatinine are within reference range. SODIUM 137 135 - 146 mmol/L [facility] POTASSIUM 4.9 3.5 - 5.3 mmol/L [facility] CHLORIDE 102 98 - 110 mmol/L [facility] CARBON DIOXIDE 28 20 - 32 mmol/L [facility] CALCIUM 9.9 8.6 - 10.3 mg/dL [facility] PROTEIN, TOTAL 8.0 6.1 - 8.1 g/dL [facility] ALBUMIN 5.1 3.6 - 5.1 g/dL [facility] GLOBULIN 2.9 1.9 - 3.7 g/dL (calc) [facility] ALBUMIN/GLOBULI N RATIO 1.8 1.0 - 2.5 (calc) [facility] BILIRUBIN, TOTAL 1.4(H) 0.2 - 1.2 mg/dL [facility] ALKALINE PHOSPHATASE 70 36 - 130 U/L [facility] AST 22 10 - 40 U/L [facility] ALT 27 9 - 46 U/L [facility] Blood Blood / Unknown 06/15/2024 1 1:59 AM EST 06/15/2024 12:00 PM EST Narrative [facility] - 06/16/2024 6:00 PM EST FASTING:NO Raul HORTONP LAB - BLOOD DRAW Edited Resu lt - Final [facility] [address] [address], [facility] [address] [phone] * REFERRAL TO OPTHALMOLOGY (05/21/2024 3:00 AM EST) 05/21/2024 3:00 AM EST Raul Lal [facility] REFERRAL Edited Resul t - Final * HEP C AB W/RLFX HCV RNA (for all adults >/= 18 yrs, all women, and all unaccompanied minors) (01/01/2024 2:14 PM EDT) HEPATITIS C ANTIBODY NON-REACT SAGAR NON-REACT SAGAR [facility] Comment: HCV antibody was non-reactive. There is no laboratory evidence of HCV infection. In most cases, no further action is required. However, if recent HCV exposure is suspected, a test for HCV RNA (test code 88041) is suggested. For additional information please refer to http://education.[employer]/faq/ZEQ14o8 (This link is being provided for informational/ educational purposes only.) Blood Blood / Unknown 01/01/2024 2 :14 PM EDT 01/01/2024 2:15 PM EDT Narrative [facility] - 2024 8:37 PM EDT FASTING:NO COLLECTION KIT GIVEN TO PATIENT. PATIENT ADVISED TO RETURN. Nolvia Maya [facility] LAB - BLOOD DRAW Edited Result - Final [facility] [address] [address], [facility] [address] [phone] * HIV 1/2 AG & AB W/RFLX (Required for 13 yrs to 64 yrs) (01/01/2024 2:14 PM EDT) HIV AG/AB, 4TH GEN NON-REAC TIVE NON-REAC TIVE [facility] Comment: HIV-1 antigen and HIV-1/HIV-2 antibodies were [...] purpose. For additional information please refer to http://education.[employer]/faq/VJL897 (This link is being provided for informational/ educational purposes only.) The performance of this assay has not been clinically validated in patients less than 2 years old. Blood Blood / Unknown 01/01/2024 2 :14 PM EDT 01/01/2024 2:15 PM EDT Narrative [employer] [facility] - 2024 8:37 PM EDT FASTING:NO COLLECTION KIT GIVEN TO PATIENT. PATIENT ADVISED TO RETURN. Nolvia Francesco VALVING MACHINE OPERATOR LAB - BLOOD DRAW Final Result [email or web address] [address] [place] [phone], [facility] [place] [employer] [address] [place] [phone] from Last 3 Months or Most Recently Relevant to Health Maintenance Insurance [place] MEDICAID [place]ENT[place] [address] [facility] Medicaid Address: [address] [place] [address] Care Teams Gauge And Instrument Inspector Relationship Specialty Start Date End Date Billy Martini NP [address] [place] [address] PCP - General Family Medicine, [place] 06/17/24
== END 2025-04-01 15:33 | disposition home or self-care (01) ==
LOC: HO.HUSH 14:23
PROVIDERS: PCP Nurse Practitioner Family; Visit Provider Nurse Practitioner Family
DX: Z13.9 Encounter for screening, unspecified (principal)

== ENCOUNTER 2025-04-01 14:22 | Outpatient (REF) | payer MEDICAID, SELFPAY | END 2025-04-01 14:23 | disposition home or self-care (01) | LOC: HO.LAB 14:22 | PROVIDERS: PCP Nurse Practitioner Family; Visit Provider Nurse Practitioner Family | DX: N20.0 Calculus of kidney (principal); R35.0 Frequency of micturition; R39.15 Urgency of urination; R31.29 Other microscopic hematuria; N32.81 Overactive bladder; N30.10 Interstitial cystitis (chronic) without hematuria | CPT/HCPCS: 51798; 81003; 88112; 99212 ==